=== PATIENT | female | born 1940 | race Caucasian/White ===

== ENCOUNTER 2019-12-30 11:53 | Emergency (ER) | payer MEDICARE, SELFPAY ==
[2019-12-30 11:55] VITALS: BP 187/103; PULSE 75; RESP 20; TEMP 36.9; O2SAT 97
--- NOTE | 2019-12-30 12:42 | ED.RECABL ---
HPI - Recheck/Abnormal Lab/Rx General Chief Complaint: Recheck/Abnormal Lab/Rx Stated Complaint: Elevated BP Time Seen by Provider: 12/30/19 12:08 Source: patient Mode of arrival: ambulatory Limitations: no limitations History of Present Illness HPI narrative: Patient is a 79-year-old female who presents to the emergency department with report of elevated blood pressure. Patient was at orthodox standing when she had onset of dizzy sensation that she describes as a near syncopal feeling. Patient denies any sensation of spinning. She states she felt as though her vision was going dark . She denies any other visual symptoms. She denies any slurred speech, focal neurologic deficits, chest pain, shortness of breath, or headache. Patient sat down and another member of the amish took her blood pressure and noted that it was elevated. They proceeded to take her blood pressure 2 additional times and contacted a family member to come pick her up. Patient went home and took her blood pressure yet again and it was 201/115. Patient and [id number] then proceeded to the emergency department. Patient is currently asymptomatic here in the emergency department. Repeat blood pressures have been 150s over 90s to 100s. Patient is currently on losartan 50 mg daily and metoprolol 25 mg daily. Patient denies any recent changes in her health and states she has been monitoring her blood pressure at home daily and her numbers have looked very good. complaint: other (high blood pressure) Related Data Home Medications Medication Instructions Recorded Confirmed aspirin 81 mg tablet,delayed 81 mg PO DAILY 10/01/19 12/21/19 release ergocalciferol (vitamin D2) 1,250 50,000 unit PO WEEKLY 10/01/19 12/21/19 mcg (50,000 unit) capsule omega 3,6,9 combination no.7 92 mg mg PO 10/01/19 12/21/19 (43 mg-22 [id number]) chew tablet vit C 50 mg-E 15 unit-zinc cit 4.5 2 tablet PO DAILY 10/01/19 12/21/19 mg-lutein 2.5 mg-zeaxan chew tablet Allergies Allergy/AdvReac Type Severity Reaction Status Date / Time codeine Allergy Unknown Vomiting Verified 10/01/19 10:09 Sulfa (Sulfonamide Allergy Unknown Unknown Verified 10/01/19 10:09 Antibiotics) Review of Systems Review of Systems: All systems reviewed & are unremarkable except as noted in HPI and below Eyes: Eyes: Denies change in vision Cardiovascular: Cardiovascular: Denies chest pain Respiratory: Respiratory: Denies dyspnea Neurologic: Denies Abnormal speech present, Denies abnormal gait, Denies vertigo, Reports dizziness, Denies syncope, Denies headache(s), Denies focal weakness, Denies memory loss, Denies numbness, Denies Sensory deficit (Neuro) and Denies disequilibrium PMFSH Past Medical History Medical History Allergies Cataract Left eye 12/2017 CKD (chronic kidney disease) Crohn disease Fracture of vertebra Hyperlipidemia Hypertension Osteopenia Post-menopausal TIA (transient ischemic attack) Vertigo Surgical History Surgical History H/O: hysterectomy History of appendectomy Social History Social History Smoking status: Former smoker Tobacco type: cigarettes Alcohol intake: never Substance use: never Exam Const: General: cooperative, no acute distress and alert Nutritional Appearance: well nourished Orientation/consciousness: patient oriented x3 Limitations: no limitations HENMT: Mouth: Yes lip normal and Yes moist mucous membranes Eyes: Conjunctivae: conjunctivae normal Pupils: Equal, round and reactive pupils present EOM: EOMs intact bilaterally Resp: Effort & Inspection: normal respiratory effort Auscultation: clear to auscultation bilaterally Cardio: Rate: regular rate Rhythm: regular rhythm GI: GI Palp: Yes Soft to palpation and No Tenderness to palpation pr
[2019-12-30 13:06] VITALS: RESP 18
[2019-12-30 13:10] VITALS: BP 166/99; PULSE 82; RESP 18; O2SAT 94
== END 2019-12-30 13:16 | disposition home or self-care (01) ==
PROVIDERS: Emergency Provider Emergency Medicine; PCP Internal Medicine
DX: I12.9 Hypertensive chronic kidney disease with stage 1 through stage 4 chronic kidney disease, or unspecified chronic kidney disease (principal); N18.9 Chronic kidney disease, unspecified; Z86.73 Personal history of transient ischemic attack (TIA), and cerebral infarction without residual deficits; K50.90 Crohn's disease, unspecified, without complications; E78.5 Hyperlipidemia, unspecified; M85.80 Other specified disorders of bone density and structure, unspecified site; Z87.891 Personal history of nicotine dependence; Z79.82 Long term (current) use of aspirin
CPT/HCPCS: 99281

== ENCOUNTER 2020-10-09 10:49 | Outpatient (CLI) | payer MEDICARE, SELFPAY ==
--- NOTE | ~2020-10-09 | CT_ITS ---
EXAMINATION:CT chest wo con DATE: 10/09/2020 11:10 INDICATION: Lung nodule. TECHNIQUE: Computed tomography (CT) of the chest was performed without intravenous contrast. Automate d exposure control and iterative reconstruction technique were employed. The dose-length product (DLP ) was 154.12 mGy-cm. COMPARISON: Chest CT 12/01/2019 FINDINGS: There is mild scarring at the lung apices. There is a 5 mm nodule at the minor fissure. The re is a 7 mm nodule in right lower lobe at the major fissure. There are peripheral reticular opacitie s and mild groundglass opacities in the inferior lungs. There is mild bronchiectasis in the inferior lungs. No pleural effusion. The heart size is normal. There are coronary artery calcifications. No pe ricardial effusion. There is a large sliding hiatal hernia. There is a 1 mm stone in right kidney. Th ere are multiple chronic vertebral body fractures in the spine. There is moderate thoracic spondylosi s. IMPRESSION: 1. Stable pulmonary nodules, likely benign. 2. Mild chronic lung disease. 3. Large sliding hiatal hernia. Reviewed, dictated and finalized at location A. UNTING ADMINISTRATOR
== END 2020-10-09 10:50 | disposition home or self-care (01) ==
PROVIDERS: PCP Internal Medicine; Visit Provider Nurse Practitioner
DX: R91.8 Other nonspecific abnormal finding of lung field (principal); K44.9 Diaphragmatic hernia without obstruction or gangrene; J47.9 Bronchiectasis, uncomplicated; M47.814 Spondylosis without myelopathy or radiculopathy, thoracic region; J98.4 Other disorders of lung
CPT/HCPCS: 71250

== ENCOUNTER 2021-04-07 12:26 | Outpatient (CLI) | payer MEDICARE, SELFPAY ==
--- NOTE | 2021-04-07 12:36 | ECHO_ITS ---
Patient Info Name: Hayley Jorge Age: 80 years : 1940 Gender: Female Ht: 62 in Wt: 209 lbs BSA: 2.08 m2 HR: 64 bpm BP: 145 / 105 mmHg Technical Quality: Fair Exam Date: 04/07/2021 12:46 PM Exam Location: [facility] Patient Status: Outpatient Admit Date: 04/07/2021 Staff Ordering Physician: Cristiana Welch NP Internal Audit Manager: Katherin Osman RDCS Attending Provider: Cristiana Welch NP Referring Physician: Yuri BELCHER; Exam Type: CA echo doppler color flow Study Info Indications R60.9 - Edema, unspecified Complete two-dimensional, color flow and Doppler transthoracic echocardiogram is performed. Summary 1. Complete two-dimensional, color flow and Doppler transthoracic echocardiogram is performed. 2. Left ventricular chamber dimension is normal. 3. Left ventricular systolic function is normal, estimated at 60-65%. 4. The left ventricular diastolic function is grade I diastolic dysfunction. 5. E/e' 13 is mildly elevated. 6. There is mild aortic valve sclerosis. 7. There is trace aortic valve regurgitation. 8. No pulmonary hypertension, estimated pulmonary arterial systolic pressure is 30 mmHg. 9. There is mild pulmonic regurgitation. Left Ventricle E/e' 13 is mildly elevated. Left ventricular chamber dimension is normal. Left ventricular systolic function is normal, estimated at 60-65%. The left ventricular diastolic function is grade I diastolic dysfunction. Right Ventricle Right ventricular systolic function is normal and with normal TAPSE 2.5 cm. Right ventricular chamber dimension is normal. Left Atria Left atrial chamber dimension is normal. Right Atria Right atrial chamber dimension is normal. Aortic Valve The aortic valve is trileaflet. There is mild aortic valve sclerosis. There is no aortic valve stenosis. There is trace aortic valve regurgitation. Pulmonic Valve There is mild pulmonic regurgitation. Mitral Valve There is no mitral valve stenosis. There is no mitral valve regurgitation. Tricuspid Valve There is no tricuspid valve regurgitation. No pulmonary hypertension, estimated pulmonary arterial systolic pressure is 30 mmHg. Pericardium/Pleural There is no pericardial effusion. Inferior Vena Cava Normal inferior vena cava with >50% collapse upon inspiration consistent with normal right atrial pressure, 5 mmHg. Aorta The aortic root size at the sinus of Valsalva is normal. Left Ventricular Outflow Tract Name Value Normal LVOT 2D LVOT Diameter 2.0 cm LVOT Doppler LVOT Peak Gradient 4 mmHg LVOT Mean Gradient 2 mmHg LVOT VTI 20 cm LVOT VTI/AV VTI Ratio 0.8 LVOT Stroke Volume 59 ml LVOT CO 4.0 l/min LVOT CI 1.9 l/min/m2 Pulmonic Valve Name Value Normal
== END 2021-04-07 12:27 | disposition home or self-care (01) ==
LOC: ANHCARD 12:28
PROVIDERS: PCP Internal Medicine; Visit Provider Nurse Practitioner
DX: R60.9 Edema, unspecified (principal); I70.0 Atherosclerosis of aorta; I37.1 Nonrheumatic pulmonary valve insufficiency
CPT/HCPCS: 93306

== ENCOUNTER 2021-06-09 08:20 | Outpatient (CLI) | payer MEDICARE, SELFPAY ==
--- NOTE | ~2021-06-09 | MR_ITS ---
EXAMINATION: MR knee LT wo con DATE: 06/09/2021 09:47 INDICATION: Left knee pain. TECHNIQUE: Magnetic resonance imaging (MRI) of the left knee was performed without intravenous contra st. Sequences included axial PD-weighted FS FSE, coronal PD-weighted FSE and PD-weighted FS FSE, sagi ttal PD-weighted FSE, and sagittal T2-weighted FS FSE. COMPARISON: None. FINDINGS: Medial compartment: There is a radial tear of posterior horn of medial meniscus. There is extensive partial thickness car tilage loss of tibial condyle and femoral condyle. There is full-thickness cartilage loss of femoral condyle involving the central articular surface. Marginal osteophytes are noted. Lateral compartment: There is a complex tear of body and posterior horn of lateral meniscus. There is extensive partial th ickness cartilage loss of femoral condyle and tibial condyle. There is full-thickness cartilage loss of femoral condyle and tibial condyle involving the posterior articular surfaces. Osteophytes are not ed. Patellofemoral compartment: There is full-thickness cartilage loss of patellar medial facet, median ridge, and lateral facet with moderate subchondral edema-like marrow signal intensity. There is extensive partial thickness cartil age loss of trochlea. Osteophytes are noted. Ligaments and tendons: The anterior and posterior cruciate ligaments are normal. Medial collateral ligament is intact. There are changes of prior sprain of fibular collateral ligament characterized by thickening and increased signal intensity proximally. There is mild patellar tendinopathy. Fluid: There is a small knee joint effusion. There is a moderate-sized ruptured Almonte's cyst. There is mild prepatellar and superficial infrapatellar bursitis. There is widespread subcutaneous edema about the knee. IMPRESSION: 1. Severe tricompartmental chondrosis. 2. Tears of medial and lateral menisci. 3. Small knee joint effusion. 4. Moderate-sized ruptured Almonte's cyst. Reviewed, dictated and finalized at location A.
== END 2021-06-09 08:21 | disposition home or self-care (01) ==
PROVIDERS: PCP Internal Medicine; Visit Provider Nurse Practitioner
DX: M25.462 Effusion, left knee (principal); M71.22 Synovial cyst of popliteal space [Baker], left knee
CPT/HCPCS: 73721

== ENCOUNTER 2021-10-15 12:43 | Outpatient (CLI) | payer MEDICARE, SELFPAY ==
--- NOTE | 2021-10-15 | ECG_ITS ---
Measurements Intervals [place] Rate: 71 P: 8 [place]: 187 QRS: -14 QRSD: 78 T: 2 QT: 354 QTc: 385 Interpretive Statements SINUS RHYTHM DELAYED PRECORDIAL R/S TRANSITION VOLTAGE CRITERIA FOR LVH BORDERLINE T WAVE ABNORMALITY- INFERIOR LEADS BASELINE ARTIFACT- AVL, AVF BORDERLINE ECG Electronically Signed On 10-15-2021 16:51:55 LEVEL DESIGNER by Gilberto De Los Santos D.O.
[2021-10-15 13:33] LABS: Anion Gap 9 mmol/L (8-16); Blood Urea Nitrogen 23 mg/dL (7-17); Carbon Dioxide 23 mmol/L (22-30); Chloride 103 mmol/L (98-107); Estimated Glomerular Filt Rate 40; Glucose 153 mg/dL (65-110); Potassium 4.4 mmol/L (3.4-5.0); Sodium 135 mmol/L (137-145)
== END 2021-10-15 12:44 | disposition home or self-care (01) ==
PROVIDERS: PCP Internal Medicine
DX: Z01.810 Encounter for preprocedural cardiovascular examination (principal)
CPT/HCPCS: 36415; 80048; 93005

== ENCOUNTER 2022-01-09 10:06 | Emergency (ER) | payer MEDICARE, SELFPAY ==
--- NOTE | 2022-01-09 10:16 | ED.SKABFB ---
HPI - Skin/Abscess/Foreign Bdy General Chief complaint: Allergic Reaction Stated complaint: Rash and swollen face Time Seen by Provider: 01/09/22 10:16 Source: patient, RN notes reviewed and old records reviewed Mode of arrival: ambulatory Limitations: no limitations History of Present Illness HPI narrative: 81-year-old female presents to the [facility] with complaints of a rash to the upper chest and face since yesterday. Denies any new foods, creams, lotions, detergents or medications. Patient denies any respiratory symptoms, chest pain, abdominal pain. No fevers. No lip, tongue, throat swelling. Patient reports that she picked a vest up from the crime scene technician, symptoms started 2 days ago symptoms started shortly thereafter. Had been applying hydrocortisone but states it makes the rash worse. MD complaint: rash (face, upper chest) Onset (ago): day(s) (2) Location: face Severity: mild Related Data Home Medications Medication Instructions Recorded Confirmed aspirin 81 mg tablet,delayed 81 mg PO DAILY 10/01/19 01/09/22 release ergocalciferol (vitamin D2) 1,250 50,000 unit PO WEEKLY 10/01/19 01/09/22 mcg (50,000 unit) capsule omega 3,6,9 combination no.7 92 mg 1 mg PO DIRECTED 10/01/19 01/09/22 (43 mg-22 [id number]) chew tablet vit C 50 mg-E 15 unit-zinc cit 4.5 1 tablet PO DAILY tablet 10/06/20 01/09/22 mg-lutein 2.5 mg-zeaxan chew tablet Allergies Allergy/AdvReac Type Severity Reaction Status Date / Time codeine Allergy Unknown Vomiting Verified 01/09/22 10:11 Sulfa (Sulfonamide Allergy Unknown Unknown Verified 01/09/22 10:11 Antibiotics) Review of Systems Review of Systems: All systems reviewed & are unremarkable except as noted in HPI and below Constitutional: Constitutional: Reports no additional constitutional complaints, Denies chills, Denies fever(s), Denies headache(s) and Denies weakness Eyes: Eyes: Reports no additional eye complaints and Denies change in vision ENT: Reports system reviewed and no additional complaints, except as documented, Denies dysphagia, Denies dizziness, Denies headache(s), Denies nasal congestion and Denies sore throat Cardiovascular: Cardiovascular: Reports no additional cardiovascular complaints, Denies chest pain, Denies syncope and Denies dyspnea Respiratory: Respiratory: Reports no additional respiratory complaints, Denies chest congestion, Denies cough, Denies dyspnea and Denies wheezing Gastrointestinal: Gastrointestinal: Denies dysphagia Musculoskeletal: Musculoskeletal: Reports no additional musculoskeletal complaints and Denies numbness Integumentary/Breasts: Skin/Breast: Reports as per HPI and Reports rash (face and upper chest) Neurologic: Reports system reviewed and no additional complaints, except as documented Psychiatric: Psychiatric: Reports no additional psychiatric complaints Allergic/Immunologic: Allergic/Immunologic: Reports as per HPI, Denies lip swelling, Denies throat swelling, Denies tongue swelling and Denies wheezing PMFSH Past Medical History Medical History Allergies Cataract Left eye 12/2017 CKD (chronic kidney disease) Crohn disease Fracture of vertebra Hyperlipidemia Hypertension Lateral meniscal tear Medial meniscus tear Osteopenia Post-menopausal TIA (transient ischemic attack) Vertigo Surgical History Surgical History H/O: hysterectomy History of appendectomy Family History Family History Father Family history of malignant neoplasm, Onset Age: 87 Social History Social History Social History: caffeine-coffee daily Smoking status: Never smoker Tobacco type: cigarettes Alcohol intake: never Substance use: never Comments At the time of my signature, I reviewed and agree with the n
[2022-01-09 10:17] VITALS: BP 144/89; PULSE 71; RESP 18; TEMP 36.4; O2SAT 96
== END 2022-01-09 10:38 | disposition home or self-care (01) ==
PROVIDERS: Emergency Provider Nurse Practitioner; PCP Internal Medicine
DX: L24.0 Irritant contact dermatitis due to detergents (principal); H26.9 Unspecified cataract; E78.5 Hyperlipidemia, unspecified; M85.80 Other specified disorders of bone density and structure, unspecified site; Z86.73 Personal history of transient ischemic attack (TIA), and cerebral infarction without residual deficits; I12.9 Hypertensive chronic kidney disease with stage 1 through stage 4 chronic kidney disease, or unspecified chronic kidney disease; N18.9 Chronic kidney disease, unspecified; K50.90 Crohn's disease, unspecified, without complications
CPT/HCPCS: 99213; G0463

== ENCOUNTER 2022-03-04 17:48 | Emergency (ER) | payer MEDICARE, SELFPAY ==
--- NOTE | ~2022-03-04 | XR_ITS ---
XR ankle RT min 3V DATE: 03/04/2022 18:12 INDICATION: Twisting injury today. Lateral ankle pain. TECHNIQUE: 4 views COMPARISON: None FINDINGS: Osteopenia. Plantar and posterior calcaneal enthesopathy, distal Achilles tendon mild calcification. No fracture or dislocation of the ankle or disruption of the ankle mortise is detected. IMPRESSION: No recent fracture or dislocation Calcaneal enthesopathy Reviewed, dictated and finalized at location A.
[2022-03-04 17:57] VITALS: BP 151/107; PULSE 75; RESP 16; TEMP 36.8; O2SAT 99
[2022-03-04 18:00] VITALS: BP 151/107; PULSE 75; RESP 16; TEMP 36.8; O2SAT 99
--- NOTE | 2022-03-04 18:23 | ED.LOWEXIN ---
HPI - Extremity Injury (Lower) General Chief Complaint: Extremity Injury, Lower Stated Complaint: right ankle pain Time Seen by Provider: 03/04/22 18:23 Source: patient Mode of arrival: ambulatory Limitations: no limitations History of Present Illness HPI Narrative: 81-year-old female presents with pain and swelling to right ankle. States that she was working in her garden and lost her balance while walking over a rock bed, caused right ankle to twist inward. Reports she was walking next to a table and was able to grab onto it to catch her balance. Did not fall completely to the ground. Did take ibuprofen prior to arrival. Ambulatory with slight limp. Range of motion and distal neurovascularly intact. Systems reviewed and negative except as noted. Related Data Home Medications Medication Instructions Recorded Confirmed aspirin 81 mg tablet,delayed 81 mg PO DAILY 10/01/19 03/04/22 release ergocalciferol (vitamin D2) 1,250 50,000 unit PO WEEKLY 10/01/19 03/04/22 mcg (50,000 unit) capsule omega 3,6,9 combination no.7 92 mg 1 mg PO DIRECTED 10/01/19 03/04/22 (43 mg-22 [id number]) chew tablet vit C 50 mg-E 15 unit-zinc cit 4.5 1 tablet PO DAILY tablet 10/06/20 03/04/22 mg-lutein 2.5 mg-zeaxan chew tablet Allergies Allergy/AdvReac Type Severity Reaction Status Date / Time codeine Allergy Unknown Vomiting Verified 03/04/22 17:58 Sulfa (Sulfonamide Allergy Unknown Unknown Verified 03/04/22 17:58 Antibiotics) Review of Systems Review of Systems: CONSTITUTIONAL: Denies fever, chills, or sweats. EYES: Denies visual changes, redness, or discharge. ENT: Denies rhinorrhea, congestion, sore throat, or otalgia. CARDIOVASCULAR: Denies chest pain, palpitations, or edema. RESPIRATORY: Denies cough or dyspnea. GASTROINTESTINAL: Denies abdominal pain, nausea, vomiting, or diarrhea. GENITOURINARY: Denies dysuria or hematuria. SKIN: Denies rash or itching. MUSCULOSKELETAL: Denies back pain, joint pain, or myalgia. Reports pain and swelling to right ankle. NEUROLOGIC: Denies headache, numbness, or weakness. PSYCHIATRIC: Denies anxiety or depression. All other systems reviewed are negative, except as documented in HPI. [facility] Past Medical History Medical History Allergies Cataract Left eye 12/2017 CKD (chronic kidney disease) Crohn disease Fracture of vertebra Hyperlipidemia Hypertension Lateral meniscal tear Medial meniscus tear Osteopenia Post-menopausal Tear meniscus knee TIA (transient ischemic attack) Vertigo Surgical History Surgical History H/O lateral meniscus repair of left knee H/O: hysterectomy History of appendectomy Family History Family History Father Family history of malignant neoplasm, Onset Age: 87 Social History Social History Social History: caffeine-coffee daily Smoking status: Never smoker Tobacco type: cigarettes Alcohol intake: never Substance use: never Comments At time of signature, agree with nursing past medical, surgical, social and family history. There is no relevant family history pertinent to the presenting complaint. Exam Narrative: GENERAL: This is a well-nourished, well-developed patient, in no apparent distress. HEAD: normocephalic, atraumatic. EYES: PERRL. Sclera clear/white. Vision is grossly intact. EARS: External ears normal NOSE: External nose normal NECK: Neck supple, non-tender without lymphadenopathy, masses or thyromegaly. CARDIOVASCULAR: Regular rate and rhythm without murmurs, gallops, or rubs. RESPIRATORY: Clear to auscultation. Breath sounds equal bilaterally. No wheezes, rales, or rhonchi. SKIN: warm, Dry, intact with no suspicious lesions or rash, good texture and turgor. NEURO: awake, alert, and oriente
== END 2022-03-04 18:45 | disposition home or self-care (01) ==
PROVIDERS: Emergency Provider Nurse Practitioner Family; PCP Internal Medicine
DX: S93.401A Sprain of unspecified ligament of right ankle, initial encounter (principal); X50.9XXA Other and unspecified overexertion or strenuous movements or postures, initial encounter; Y93.H2 Activity, gardening and landscaping; I12.9 Hypertensive chronic kidney disease with stage 1 through stage 4 chronic kidney disease, or unspecified chronic kidney disease; N18.9 Chronic kidney disease, unspecified; K50.90 Crohn's disease, unspecified, without complications; E78.5 Hyperlipidemia, unspecified; M85.80 Other specified disorders of bone density and structure, unspecified site; Z86.73 Personal history of transient ischemic attack (TIA), and cerebral infarction without residual deficits
CPT/HCPCS: 73610; 99213; G0463

== ENCOUNTER 2022-03-12 07:16 | Emergency (ER) | payer MEDICARE, SELFPAY ==
[2022-03-12] VITALS (30 sets, daily range): BP systolic 110–163; BP diastolic 81–111; PULSE 59–82; RESP 11–23; TEMP 36.9; O2SAT 92–99
--- NOTE | ~2022-03-12 | XR_ITS ---
EXAMINATION: XR chest 2V DATE: 03/12/2022 07:35 INDICATION: Chest pain TECHNIQUE: PA and lateral views of the chest are obtained. COMPARISON: 12/01/2019 FINDINGS: The lungs are free of acute opacities. There is no pleural effusion or pneumothorax. The he art size is normal. There is a large hiatal hernia. Multiple chronic vertebral body fractures are aga in noted without significant change. IMPRESSION: 1. No acute cardiopulmonary abnormality. Reviewed, dictated and finalized at location A.
--- NOTE | 2022-03-12 07:19 | ECG_ITS ---
Measurements Intervals [place] Rate: 68 P: -6 [place]: 196 QRS: -15 QRSD: 89 T: 5 QT: 380 QTc: 406 Interpretive Statements SINUS RHYTHM VOLTAGE CRITERIA FOR LVH BORDERLINE T WAVE ABNORMALITY- INFERIOR LEADS BASELINE ARTIFACT- I, II BORDERLINE ECG Electronically Signed On 03-12-2022 8:13:48 CDT by Gilberto De Los Santos D.O.
[2022-03-12] MEDS: ASPIRIN 81 MG CHEWABLE TABLET 324 MG PO (07:29)
[2022-03-12 07:39] LABS: Basophils Percent Auto 0.8 % (0.2-1.2); Eosinophils Absolute Auto 0.1 K/mm3 (0-0.3); Eosinophils Percent Auto 2.6 % (0-4.4); Hemoglobin 13.6 g/dL (12.0-15.0); Immature Granulocyte Absolute 0.01 K/mm3 (0.00-0.031); Immature Granulocyte Percent A 0.2 % (0-0.5); Lymphocytes Absolute Auto 1.68 K/mm3 (0.9-3.2); Lymphocytes Percent Auto 33.2 % (18.3-44.2); Mean Corpuscular HGB Conc 33.2 g/dl (32-36); Mean Corpuscular Hemoglobin 30.6 pg (26-34); Mean Corpuscular Volume 92.3 fl (80-100); Mean Platelet Volume 10.3 fl (7.4-10.4); Monocytes Absolute Auto 0.8 K/mm3 (0.1-0.6); Monocytes Percent Auto 14.8 % (2.6-8.5); Neutrophils Absolute Auto 2.5 K/mm3 (1.3-6.7); Neutrophils Percent Auto 48.4 % (45.5-73.1); Platelet Count Result 252 k/mm3 (150-375); Red Blood Count 4.44 M/mm3 (4.2-5.4); Red Cell Distribution Width 13.4 % (11.5-14.5); White Blood Count 5.1 K/mm3 (4.5-10.0)
[2022-03-12 07:49] LABS: INR 1.1; Partial Thromboplastin Time 27.5 SECONDS (22.3-36.8); Prothrombin Time 13.4 Seconds (11.1-14.7)
[2022-03-12 08:00] LABS: Alanine Aminotransferase 21 U/L (4-35); Albumin Level 3.9 g/dL (3.5-5.1); Alkaline Phosphatase 109 U/L (38-126); Anion Gap 4 mmol/L (8-16); Aspartate Amino Transferase 23 U/L (14-36); Bilirubin,Total 0.4 mg/dL (0.2-1.3); Blood Urea Nitrogen 14 mg/dL (7-17); Calcium 9.1 mg/dL (8.4-10.2); Carbon Dioxide 23 mmol/L (22-30); Chloride 110 mmol/L (98-107); Estimated CRCL calculation 38 ml/min; Estimated Glomerular Filt Rate 48; Glucose 113 mg/dL (65-110); Lipase 94 U/L (23-300); Potassium 4.2 mmol/L (3.4-5.0); Sodium 137 mmol/L (137-145)
[2022-03-12 08:10] LABS: Troponin I < 0.012 ng/mL (0.000-0.034)
--- NOTE | 2022-03-12 08:55 | ED.CHESTPAIN ---
HPI - Chest Pain General Chief Complaint: Chest Pain Stated Complaint: CP Time Seen by Provider: 03/12/22 07:19 Source: patient Mode of arrival: ambulatory Limitations: no limitations History of Present Illness HPI narrative: 81-year-old female presents to the emergency department for evaluation of chest pain back pain that started approximately 1 hour prior to arrival. Patient states she does have a history of GERD and this felt similar. Patient states that typically her GERD does improve with drinking water and this pain did not resolve with drinking water. Patient denies any current chest pain but states she is still having some back pain. Patient denies any prior history of coronary disease. Patient does have history of hypertension. Patient denies any history of high cholesterol or diabetes. Patient had a stress test in 2006. Related Data Home Medications Medication Instructions Recorded Confirmed aspirin 81 mg tablet,delayed 81 mg PO DAILY 10/01/19 03/04/22 release ergocalciferol (vitamin D2) 1,250 50,000 unit PO WEEKLY 10/01/19 03/04/22 mcg (50,000 unit) capsule omega 3,6,9 combination no.7 92 mg 1 mg PO DIRECTED 10/01/19 03/04/22 (43 mg-22 [id number]) chew tablet vit C 50 mg-E 15 unit-zinc cit 4.5 1 tablet PO DAILY tablet 10/06/20 03/04/22 mg-lutein 2.5 mg-zeaxan chew tablet Allergies Allergy/AdvReac Type Severity Reaction Status Date / Time codeine Allergy Unknown Vomiting Verified 03/12/22 07:25 Sulfa (Sulfonamide Allergy Unknown Unknown Verified 03/12/22 07:25 Antibiotics) Review of Systems Review of Systems: CONSTITUTIONAL: Denies fever, chills, or sweats. EYES: Denies visual changes, redness, or discharge. ENT: Denies rhinorrhea, congestion, sore throat, or otalgia. CARDIOVASCULAR: See HPI RESPIRATORY: Denies cough or dyspnea. GASTROINTESTINAL: Denies abdominal pain, nausea, vomiting, or diarrhea. GENITOURINARY: Denies dysuria or hematuria. SKIN: Denies rash or itching. MUSCULOSKELETAL: See HPI NEUROLOGIC: Denies headache, numbness, or weakness. [facility] Past Medical History Medical History Allergies Cataract Left eye 12/2017 CKD (chronic kidney disease) Crohn disease Fracture of vertebra Hyperlipidemia Hypertension Lateral meniscal tear Medial meniscus tear Osteopenia Post-menopausal Tear meniscus knee TIA (transient ischemic attack) Vertigo Surgical History Surgical History H/O lateral meniscus repair of left knee H/O: hysterectomy History of appendectomy Family History Family History Father Family history of malignant neoplasm, Onset Age: 87 Social History Social History Social History: caffeine-coffee daily Smoking status: Never smoker Tobacco type: cigarettes Alcohol intake: never Substance use: never Exam Narrative: APPEARANCE: Well appearing, no pain, no distress, well-nourished. HEAD: normocephalic, atraumatic. EYES: PERRLA/EOMI, conjunctivae clear. NOSE: Normal no drainage THROAT: Pharynx clear, no exudate. NECK: Supple. No adenopathy, no masses. RESPIRATORY: Airway patent, respirations nonlabored. Clear to auscultation bilaterally, no rales, rhonchi, wheezing. CARDIOVASCULAR: Regular rate and rhythm without murmurs rubs or gallops. ABDOMINAL: Soft, nontender, nondistended, normal bowel sounds MUSCULOSKELETAL: Moves all extremities. Strength/ROM intact, No edema, No calf tenderness. NEURO: Alert. Cranial nerves II through XII intact. Grossly intact SKIN: Warm, dry. Normal Color Course Course Emergency Course: Patient's pain did improve during her stay in the emergency room. Patient denied any chest pain prior to discharge. Patient had negative serial troponins. Patient did feel improvement with the GI cocktail.
[2022-03-12] MEDS: BELLADONNA ALK/PHENOB ELIX 10 ML, MAG HYDROX/ALUMINUM HYD/SIMETH 30 ML, LIDOCAINE HCL 2... PO (09:16)
[2022-03-12 10:20] LABS: Troponin I < 0.012 ng/mL (0.000-0.034)
[2022-03-12] MEDS: PANTOPRAZOLE SOD SESQUIHYDRATE 20 MG TAB PO (11:12)
== END 2022-03-12 11:17 | disposition home or self-care (01) ==
PROVIDERS: Emergency Provider Emergency Medicine; PCP Internal Medicine
DX: R07.9 Chest pain, unspecified (principal); I12.9 Hypertensive chronic kidney disease with stage 1 through stage 4 chronic kidney disease, or unspecified chronic kidney disease; N18.9 Chronic kidney disease, unspecified; K50.90 Crohn's disease, unspecified, without complications; E78.5 Hyperlipidemia, unspecified; K21.9 Gastro-esophageal reflux disease without esophagitis; Z79.82 Long term (current) use of aspirin; M85.80 Other specified disorders of bone density and structure, unspecified site; Z86.73 Personal history of transient ischemic attack (TIA), and cerebral infarction without residual deficits; R94.31 Abnormal electrocardiogram [ECG] [EKG]
CPT/HCPCS: 36415; 71046; 80053; 83690; 84484; 85025; 85610; 85730; 93005; 99284; A9270

== ENCOUNTER 2022-08-04 11:01 | Outpatient (CLI) | payer MEDICARE, SELFPAY ==
--- NOTE | ~2022-08-04 | US_ITS ---
US thyroid INDICATION: Thyroid fullness TECHNIQUE: Real-time sonographic images of the thyroid gland were obtained. COMPARISON: No prior studies for comparison. FINDINGS: The right thyroid lobe measures 3.3 x 2.2 x 1.4 cm. The left thyroid lobe measures 2.9 x 1 .6 x 1 cm. There is normal echotexture and echogenicity throughout the thyroid gland. No discrete nod ules identified. Normal vascular flow is present. IMPRESSION: 1. Normal thyroid without discrete nodule or abnormal vascularity. Reviewed, dictated and finalized at location B.
== END 2022-08-04 11:02 | disposition home or self-care (01) ==
LOC: ANHIMG 11:03
PROVIDERS: PCP Internal Medicine; Visit Provider Nurse Practitioner
DX: R22.1 Localized swelling, mass and lump, neck (principal)
CPT/HCPCS: 76536

== ENCOUNTER 2023-02-02 15:40 | Outpatient (CLI) | payer MEDICARE, SELFPAY ==
--- NOTE | ~2023-02-02 | CT_ITS ---
EXAMINATION: CT diagnostic chest wo con DATE: 02/02/2023 15:56 INDICATION: Lung nodule follow-up TECHNIQUE: Computed tomography (CT) of the chest was performed without intravenous contrast. Automate d exposure control and iterative reconstruction technique were employed. Exam dose: 177.01 mGy-cm to evan exam DLP. COMPARISON: 03/12/2022 PA and lateral chest 10/09/2020 CT chest FINDINGS: Large sliding hiatal hernia containing almost the entire stomach. Normal heart size. Mild coronary artery calcification. There is atherosclerotic calcification but nor mal caliber of the thoracic aorta. No hilar or mediastinal mass lesion or lymphadenopathy. Stable probable fissural node of the minor fissure, benign in appearance, unchanged since . Stable peripheral 6 mm right lower lobe pulmonary nodule. Stable mild bilateral apical scarring. Mild discoid atelectasis or scarring of the lower lobes. Mild peripheral interstitial septal soft tis owen thickening thickening of the lungs, possibly due to mild usual interstitial pneumonia interstitia l fibrosis. Normal morphology of the adrenal glands. Osteoarthritis at the glenohumeral joints. There is thoracic kyphosis with loss of height and anterior wedging of multiple thoracic vertebral leopoldo dies, most prominent at T8, also involving to a lesser extent T7, T6, T3, T2. Degenerative spurring o f the thoracic and lumbar spine. 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 Reviewed, dictated and finalized at location B.
== END 2023-02-02 15:41 | disposition home or self-care (01) ==
PROVIDERS: PCP Internal Medicine; Visit Provider Nurse Practitioner
DX: R91.1 Solitary pulmonary nodule (principal); K44.9 Diaphragmatic hernia without obstruction or gangrene; M48.54XA Collapsed vertebra, not elsewhere classified, thoracic region, initial encounter for fracture
CPT/HCPCS: 71250

== ENCOUNTER 2023-04-08 13:43 | Emergency (ER) | payer MEDICARE, SELFPAY ==
--- NOTE | ~2023-04-08 | XR_ITS ---
EXAMINATION: XR foot RT min 3V DATE: 04/08/2023 14:17 INDICATION: Right foot pain. TECHNIQUE: 4 views of right foot were obtained. COMPARISON: None. FINDINGS: Bone alignment is normal. No fracture. There is severe osteoarthritis of first and second m etatarsophalangeal joints and mild osteoarthritis of many of the interphalangeal joints. There is mod erate osteoarthritis of third proximal interphalangeal joint. There are deformities of the heads of t he second-fifth proximal phalanges, which may be secondary to prior surgery or old healed fractures. There are enthesophytes at the posterior and plantar aspects of calcaneal tuberosity. IMPRESSION: 1. Polyarticular osteoarthritis. Reviewed, dictated and finalized at location A.
[2023-04-08 13:53] VITALS: BP 131/68; PULSE 91; RESP 16; TEMP 36.9; O2SAT 98
--- NOTE | 2023-04-08 14:22 | ED.LOWEXIN ---
HPI - Extremity Injury (Lower) General Chief Complaint: Extremity Injury, Lower Stated Complaint: Right Foot Pain Time Seen by Provider: 04/08/23 14:46 Source: patient and RN notes reviewed Mode of arrival: ambulatory Limitations: no limitations History of Present Illness HPI Narrative: 82 year old female presents with concern for right foot pain. She reports her foot started hurting after she was working in the [employer] 2 days ago. Reports she did not have any direct injury or trauma. She reports swelling. She reports she has been using ice in [place] without relief. She denies fever, aches, chills, sweats. Denies history of gout MD complaint: foot injury Related Data Home Medications Medication Instructions Recorded Confirmed aspirin 81 mg tablet,delayed 81 mg PO DAILY 10/01/19 01/26/23 release (Adult Low Dose Aspirin) ergocalciferol (vitamin D2) 1,250 50,000 unit PO WEEKLY 10/01/19 01/26/23 mcg (50,000 unit) capsule omega 3,6,9 combination no.7 92 mg 1 mg PO DIRECTED 10/01/19 01/26/23 (43 mg-22 [id number]) chew tablet vit C 50 mg-E 15 unit-zinc cit 4.5 1 tablet PO DAILY 10/06/20 01/26/23 mg-lutein 2.5 mg-zeaxan chew tablet (hearo.fm [facility]) vitamin B complex (B 1 tablet PO DAILY 07/30/22 01/26/23 Complex-Vitamin B12 tablet) thiamine HCl (vitamin B1) 25 mg mg PO 01/26/23 01/26/23 tablet mag jh-lmvfzws-bthkqhqgh-e-bilber ml PO 04/08/23 300 mg-600 mg-100 mg/15 mL oral susp Allergies Allergy/AdvReac Type Severity Reaction Status Date / Time codeine Allergy Unknown Vomiting Verified 10/07/22 10:16 Sulfa (Sulfonamide AdvReac Unknown Vomiting Verified 04/08/23 14:02 Antibiotics) Review of Systems Review of Systems: CONSTITUTIONAL: Denies malaise, chills, sweats, or fever. SKIN: Denies rash or itching, open skin, laceration, abrasion, redness, warmth, swelling. MUSCULOSKELETAL: Reports right foot pain and swelling NEUROLOGIC: Denies numbness, weakness All systems reviewed & are unremarkable except as noted in HPI and below PMFSH Past Medical History Medical History (Reviewed 01/26/23 @ 07:37 by Anjana Mcdaniel [facility]) Allergies Cataract Left eye 12/2017 CKD (chronic kidney disease) Constipation Crohn disease Fracture of vertebra Fullness of neck Hyperlipidemia Hypertension Lateral meniscal tear Medial meniscus tear Osteopenia Post-menopausal Tear meniscus knee TIA (transient ischemic attack) Vertigo Surgical History Surgical History (Reviewed 01/26/23 @ 07:37 by Anjana Mcdaniel [facility]) H/O lateral meniscus repair of left knee H/O: hysterectomy History of appendectomy Family History Family History Father Family history of malignant neoplasm, Onset Age: 87 Social History Social History (Reviewed 01/26/23 @ 07:37 by Anjana Mcdaniel [facility]) Social History: caffeine-coffee daily, 1 cup Smoking status: Never smoker Tobacco type: cigarettes Alcohol intake: never Substance use: never Lack of Transportation: No Lack of Food: Never True Current Housing: I Have Housing Concerned About Future Housing: No Difficulty Paying Gas/Electric Bills: No Difficulty Paying for Meds: No Currently Unemployed: No Education: High School Diploma/GED Difficulty w/ Childcare or Family Care: No Comments At time of signature, agree with nursing past medical, surgical, social and family history. There is no relevant family history pertinent to the presenting complaint Exam Narrative: GENERAL: Well-appearing, well-nourished, and in no acute distress. HEAD: Normocephalic, atraumatic. EYES: PERRLA, conjunctivae clear NECK: Supple. CHEST: Speaks in full sentences. No respiratory distress. HEART: Regular rate and rhythm. Normal and equal peripheral pulses. EXTREMITIES: Right ankle, foot, digits have has normal strength and sensation, normal range of motion. Mild soft edema without ecchymosis.
== END 2023-04-08 14:50 | disposition home or self-care (01) ==
PROVIDERS: Emergency Provider Nurse Practitioner; PCP Internal Medicine
DX: M79.671 Pain in right foot (principal); I12.9 Hypertensive chronic kidney disease with stage 1 through stage 4 chronic kidney disease, or unspecified chronic kidney disease; N18.9 Chronic kidney disease, unspecified; K50.90 Crohn's disease, unspecified, without complications; E78.5 Hyperlipidemia, unspecified; M85.80 Other specified disorders of bone density and structure, unspecified site; Z86.73 Personal history of transient ischemic attack (TIA), and cerebral infarction without residual deficits; Z79.82 Long term (current) use of aspirin
CPT/HCPCS: 73630; 99213; G0463

== ENCOUNTER 2023-05-04 14:53 | Outpatient (CLI) | payer MEDICARE, SELFPAY ==
--- NOTE | ~2023-05-04 | US_ITS ---
EXAMINATION: US venous doppler LE RT DATE: 05/04/2023 15:53 INDICATION: Right lower limb swelling TECHNIQUE: Salazar scale images without and with compression and Doppler images of the right lower extre mity veins were obtained. COMPARISON: None FINDINGS: The right common femoral vein, profunda femoral vein, femoral vein, popliteal vein, peronea l trunk, posterior tibial veins, and greater saphenous vein are patent. IMPRESSION: 1. Patent right lower extremity veins. No evidence of deep venous thrombosis. Reviewed, dictated and finalized at location []
== END 2023-05-04 14:54 | disposition home or self-care (01) ==
PROVIDERS: PCP Internal Medicine; Visit Provider Internal Medicine Nephrology
DX: R60.0 Localized edema (principal); M79.89 Other specified soft tissue disorders; N18.32 Chronic kidney disease, stage 3b
CPT/HCPCS: 93971

== ENCOUNTER 2023-08-28 19:56 | Inpatient (IN) | payer MEDICARE, SELFPAY ==
[2023-08-28] VITALS (7 sets, daily range): BP systolic 139–169; BP diastolic 90–115; PULSE 82–97; RESP 16–22; TEMP 37.3–37.8; O2SAT 92–97
--- NOTE | ~2023-08-28 | XR_ITS ---
EXAMINATION: XR chest 1V portable Exam Date/Time: 08/28/2023 20:30 CDT HISTORY: FEVER NECK PAIN Comparison: 03/12/2022. RESULT: Lines, tubes, and devices: None. Lungs and pleura: Senescent changes and bibasilar scar/atelectasis, otherwise clear. Cardiomediastinal silhouette: Stable. Moderate hiatal hernia Other: No acute osseous or upper abdominal finding. IMPRESSION: No acute cardiopulmonary process. Reviewed, dictated and finalized at location K.
--- NOTE | ~2023-08-28 | CT_ITS ---
EXAMINATION: CT brain wo con DATE: 08/28/2023 21:56 INDICATION: neck pain, fever . TECHNIQUE: Computed tomography (CT) of the head was performed without intravenous contrast. The mA wa s adjusted according to patient size. Iterative reconstruction technique was employed. The dose-lengt h product was 605.33 mGy-cm. COMPARISON: 07/15/2016. FINDINGS: No acute intracranial hemorrhage or extra-axial fluid collection. No hydrocephalus, mass, or herniation. No acute ischemic infarct. Unremarkable dural venous sinus attenuation. No acute osseous abnormality. The aerated spaces are clear. Moderate atrophy and chronic white matter change. Atherosclerotic intracranial calcification. Old lef t lacunar infarction. Bilateral lens replacements. IMPRESSION: No acute intracranial process. Reviewed, dictated and finalized at location K.
--- NOTE | ~2023-08-28 | XR_ITS ---
EXAMINATION: XR lumbar puncture diagnostic DATE: 08/29/2023 13:11 INDICATION: Neck pain and fever TECHNIQUE: The procedure including the risks and benefits was discussed with the patient. Risks discu ssed included spinal headache, cerebrospinal fluid leak, bleeding, and infection. The patient underst ood the risks and agreed to proceed. A timeout was performed to verify the patient's name, date of , and procedure to be performed. The skin overlying the L4-L5 level was prepped and draped in usual sterile fashion. Subcutaneous 1% lidocaine was used for local anesthesia. Utilizing a left pa ramedial approach a 22 gauge spinal needle was advanced under fluoroscopic guidance. The needle was r emoved and the entry site was cleaned and dressed. The patient was returned to the floor with no imme diate complications. A total of 2 fluoroscopic images and one lateral radiograph were obtained. The a mount of fluoroscopy time used during this procedure was 0.2 minutes. FINDINGS: Real-time fluoroscopy demonstrates the needle at the L4-L5 level. Opening pressure was 19 c m water. (Normal range is variably defined as 6-20 cm water and up to 25 cm water in obese patients. Pressure >25 cm water is one of the modified Dandy criteria for idiopathic intracranial hypertension) . 12 mL of clear, colorless fluid was collected in 4 tubes. IMPRESSION: 1. Successful fluoro-guided lumbar puncture with opening pressure of 19 cm water. Reviewed, dictated and finalized at location A. IMPRESSION: 1. Successful fluoro-guided lumbar puncture with opening pressure of 19 cm wate yadira
--- NOTE | ~2023-08-28 | CT_ITS ---
EXAMINATION: CT soft tissue neck w con DATE: 08/28/2023 21:57 INDICATION: Neck pain. Fever. TECHNIQUE: Computed tomography (CT) of the neck was performed with 100 mL Omnipaque-350 intravenous c ontrast. The dose-length product was 1116.20 mGy-cm. COMPARISON: CT brain same date; CT chest 02/02/2023 FINDINGS: The thyroid gland is unremarkable. The submandibular and parotid glands are symmetric. There is n o cervical lymphadenopathy. There are no masses identified. Aortic ectasia and mild arch calcific ation. Cardiomegaly. Large hiatal hernia. Aortic valve and coronary artery calcifications. The airwa y is unremarkable. Parapharyngeal and pre-glottic fat planes are preserved. Calcified plaques at the carotid bifurcations. Bilateral lens replacements. Visualized sinuses and mastoid air cells are well aerated. Biapical pleural scarring. Stable pulmonary nodules. Mild interlobular septal thicke sukhdev with possible peripheral reticulation. There is cervical spondylosis and facet arthropathy. IMPRESSION: No CT finding to explain neck pain or fever. Mild interstitial edema versus chronic interstitial change. Reviewed, dictated and finalized at location K.
[2023-08-28 20:34] LABS: Basophils Percent Auto 0.4 % (0.2-1.2); Eosinophils Percent Auto 0.4 % (0-4.4); Hematocrit 37.2 % (37.0-47.0); Hemoglobin 11.9 g/dL (12.0-15.0); Immature Granulocyte Absolute 0.03 K/mm3 (0.00-0.031); Immature Granulocyte Percent A 0.4 % (0-0.5); Lymphocytes Absolute Auto 1.28 K/mm3 (0.9-3.2); Lymphocytes Percent Auto 17.9 % (18.3-44.2); Mean Corpuscular Hemoglobin 29.6 pg (26-34); Mean Corpuscular Volume 92.5 fl (80-100); Mean Platelet Volume 10.2 fl (7.4-10.4); Monocytes Percent Auto 13.7 % (2.6-8.5); Neutrophils Absolute Auto 4.8 K/mm3 (1.3-6.7); Neutrophils Percent Auto 67.2 % (45.5-73.1); Platelet Count Result 277 k/mm3 (150-375); Red Blood Count 4.02 M/mm3 (4.2-5.4); Red Cell Distribution Width 14.6 % (11.5-14.5); White Blood Count 7.2 K/mm3 (4.5-10.0)
--- NOTE | 2023-08-28 20:36 | ED.GENADULT ---
HPI - General Adult General Chief complaint: Neck Pain/Injury Stated complaint: Stiff neck and fever Time Seen by Provider: 08/28/23 20:22 History of Present Illness HPI narrative: Patient is a 82-year-old female who presents the emergency department with chief complaint of stiff neck and fever. Patient reports for several days she has been having progressive pain in her neck patient reports on bilateral sides of her neck reports it radiates to the occipital portion of her head patient reports no headache denies photophobia does report that her neck feels stiff and it is worse with movement. Patient reports no trauma reports no sore throat runny nose denies cough denies abdominal pain denies dysuria patient reports that back in June she had a knee replacement of her left knee at that time she did have spinal anesthesia with her general anesthesia patient reports no pain in her low back denies numbness or tingling denies focal neurological deficit. Related Data Home Medications Medication Instructions Recorded Confirmed aspirin 81 mg tablet,delayed 81 mg PO DAILY 10/01/19 08/03/23 release (Adult Low Dose Aspirin) omega 3,6,9 combination no.7 92 mg 1 mg PO DIRECTED 10/01/19 08/03/23 (43 mg-22 [id number]) chew tablet vit C 50 mg-E 15 unit-zinc cit 4.5 1 tablet PO DAILY 10/06/20 08/03/23 mg-lutein 2.5 mg-zeaxan chew tablet [facility]) vitamin B complex (B 1 tablet PO DAILY 07/30/22 08/03/23 Complex-Vitamin B12 tablet) thiamine HCl (vitamin B1) 25 mg mg PO 01/26/23 08/03/23 tablet mag gx-lnrudei-ebqwalpli-e-bilber ml PO 04/08/23 08/03/23 300 mg-600 mg-100 mg/15 mL oral susp febuxostat 40 mg tablet 40 mg PO DAILY 08/03/23 08/03/23 Allergies Allergy/AdvReac Type Severity Reaction Status Date / Time codeine Allergy Unknown Vomiting Verified 08/28/23 20:16 Sulfa (Sulfonamide AdvReac Unknown Vomiting Verified 08/28/23 20:16 Antibiotics) Review of Systems Review of Systems: A 10 system review of systems was completed on the patient and is negative except for what is stated in the HPI. Nursing and ancillary documentation was reviewed. [facility] Past Medical History Medical History Allergies Cataract Left eye 12/2017 CKD (chronic kidney disease) Constipation Crohn disease Fracture of vertebra Fullness of neck Hyperlipidemia Hypertension Lateral meniscal tear Medial meniscus tear Osteopenia Post-menopausal Tear meniscus knee TIA (transient ischemic attack) Vertigo Surgical History Surgical History H/O lateral meniscus repair of left knee H/O: hysterectomy History of appendectomy History of knee replacement Family History Family History Father Family history of malignant neoplasm, Onset Age: 87 Social History Social History Social History: caffeine-coffee daily, 1 cup Smoking status: Never smoker Tobacco type: cigarettes Alcohol intake: never Substance use: never Lack of Transportation: No Lack of Food: Never True Current Housing: I Have Housing Concerned About Future Housing: No Difficulty Paying Gas/Electric Bills: No Difficulty Paying for Meds: No Currently Unemployed: No Education: High School Diploma/GED Difficulty w/ Childcare or Family Care: No Gender identity (if verbalized by the patient): Female Exam Narrative: GENERAL: Well-appearing, well-nourished, and in no acute distress. HEAD: Normocephalic, atraumatic. EYES: PERRLA and EOMI. ENT: Nares clear, no rhinorrhea or epistaxis. Mucous membranes moist. NECK: Supple. Tenderness to palpation the paraspinous muscles of the neck CHEST: Clear to auscultation. No respiratory distress. HEART: Regular rate and rhythm. No murmur he
[2023-08-28] MEDS: SODIUM CHLORIDE 0.9% IV 1,000 ML 999 ML IV CONT (20:38)
[2023-08-28] MEDS: KETOROLAC 15 MG/ML VIAL (*BKC) IV PUSH (20:39)
[2023-08-28] MEDS: ACETAMINOPHEN 500 MG TABLET 1000 MG PO (20:39)
[2023-08-28 20:45] LABS: Lactic Acid Reflex 1.1 mmol/L (0.7-2.0)
[2023-08-28 20:58] LABS: Alanine Aminotransferase 25 U/L (6-35); Albumin Level 3.9 g/dL (3.5-5.1); Alkaline Phosphatase 122 U/L (38-126); Anion Gap 6 mmol/L (8-16); Aspartate Amino Transferase 39 U/L (14-36); Bilirubin,Total 1.3 mg/dL (0.2-1.3); Blood Urea Nitrogen 13 mg/dL (7-17); Carbon Dioxide 24 mmol/L (22-30); Chloride 105 mmol/L (98-107); Estimated CRCL calculation 37 ml/min; Estimated Glomerular Filt Rate 48; Glucose 131 mg/dL (65-110); Magnesium 2.4 mg/dL (1.6-2.3); Potassium 3.7 mmol/L (3.4-5.0); Sodium 135 mmol/L (137-145)
[2023-08-28 20:59] LABS: Prothrombin Time 14.1 Seconds (11.1-14.7)
[2023-08-28 21:00] LABS: Partial Thromboplastin Time 27.6 SECONDS (22.3-36.8)
[2023-08-28 21:01] LABS: CRP 14.4 mg/dL (<1.0)
[2023-08-28 21:10] LABS: Procalcitonin 0.1 ng/mL
[2023-08-28 21:10] LABS: Appearance Urine Turbid (Clear); Bacteria Urine None Seen /hpf; Bilirubin Urine Negative (Negative); Blood Urine Negative (Negative); Color Urine Yellow (Yellow); Glucose Urine UA Negative (Negative); Ketones Urine Trace mg/dL (Negative); Leukocyte Esterase Ur Negative LEU/UL (Negative); Nitrate Urine Negative (Negative); Non Pathogenic Casts 0-2; Protein Urine Trace mg/dL (Negative); Specific Grav Ur 1.017 (1.001-1.035); Squamous Epithelial Cell Urine Few /hpf (Few); WBC Urine 0-5 /hpf
[2023-08-28 21:11] LABS: Troponin I < 0.012 ng/mL (0.000-0.034)
[2023-08-28 21:12] LABS: Strep Group A RT-PCR NOT DETECTED (Negative)
[2023-08-28 21:15] LABS: Add Urine Microscopic? YES
[2023-08-28 21:16] LABS: Erythrocyte Sedimentation Rate 27 mm/hr (0-20)
[2023-08-28 21:24] LABS: Influenza A QL RT-PCR Negative (Negative); Influenza B QL RT-PCR Negative (Negative); SARS-CoV-2 RNA PCR Negative (Negative)
[2023-08-29] VITALS (8 sets, daily range): BP systolic 127–156; BP diastolic 76–100; PULSE 73–92; RESP 12–18; TEMP 36.4–37.4; O2SAT 93–97; BMI 32.9
[2023-08-29] MEDS: cefTRIAXone 2 GM/NS 100 ML 2 GM/100 ML BAG IVPB (00:02)
--- NOTE | 2023-08-29 00:56 | PM.IMHP ---
H&P: HPI History of Present Illness Date/Time: 08/29/23 00:56 Chief Complaint: Neck stiffness Narrative: This is an 82 yo female with PMHx significant for HTN,DJD, Restless leg syndrome, L Knee total arthroplasty in [place]. Patient comes today to ED due to neck pain and stiffness, had fever episode of 103, has occipital headache as well, no vision changes, no nausea, no vomiting no diarrhea, no abdominal pain, no cough, no sputum production. Preliminary work up has been essentially unrevealing. Patient is been admitted for further evaluation, management and treatment. EXAMINATION:? XR chest 1V portable Exam Date/Time:? 08/28/2023 20:30 CDT HISTORY: FEVER NECK PAIN ? Comparison:? 03/12/2022. RESULT: Lines, tubes, and devices:? None. Lungs and pleura:? Senescent changes and bibasilar scar/atelectasis, otherwise clear. Cardiomediastinal silhouette:? Stable. Moderate hiatal hernia Other:? No acute osseous or upper abdominal finding. ? IMPRESSION: No acute cardiopulmonary process. EXAMINATION: CT brain wo con DATE: 08/28/2023 21:56 INDICATION: neck pain, fever . TECHNIQUE: Computed tomography (CT) of the head was performed without intravenous contrast. The mA was adjusted according to patient size. Iterative reconstruction technique was employed. The dose-length product was 605.33 mGy-cm. COMPARISON: 07/15/2016. FINDINGS: No acute intracranial hemorrhage or extra-axial fluid collection. No hydrocephalus, mass, or herniation. No acute ischemic infarct. Unremarkable dural venous sinus attenuation. No acute osseous abnormality. The? aerated spaces are clear. Moderate atrophy and chronic white matter change. Atherosclerotic intracranial calcification. Old left lacunar infarction. Bilateral lens replacements. IMPRESSION:? No acute intracranial process. EXAMINATION: CT soft tissue neck w con DATE: 08/28/2023 21:57 INDICATION: Neck pain. Fever. TECHNIQUE: Computed tomography (CT) of the neck was performed with 100 mL Omnipaque-350 intravenous contrast. The dose-length product was 1116.20 mGy-cm. COMPARISON: CT brain same date; CT chest 02/02/2023 FINDINGS: The thyroid gland is unremarkable. ? The submandibular and parotid glands are symmetric. ? There is no cervical lymphadenopathy.? There are no masses identified.? ? Aortic ectasia and mild arch calcification. Cardiomegaly. Large hiatal hernia. Aortic valve and coronary artery calcifications.? The airway is unremarkable. ? Parapharyngeal and pre-glottic fat planes are preserved. ? Calcified plaques at the carotid bifurcations.? Bilateral lens replacements.? Visualized sinuses and mastoid air cells are well aerated. ? Biapical pleural scarring. Stable pulmonary nodules. Mild interlobular septal thickening with possible peripheral reticulation.? There is cervical spondylosis and facet arthropathy. IMPRESSION: No CT finding to explain neck pain or fever. Mild interstitial edema versus chronic interstitial change. Review of Systems Review of Systems: neck stiffness, fever Constitutional: Constitutional: Denies fatigue, Reports fever(s), Denies malaise and Denies weakness Eyes: Eyes: Denies change in vision ENT: Denies dysphagia, Denies vertigo, Denies dizziness, Denies nasal congestion, Denies nasal discharge, Denies nasal trauma and Denies odynophagia Respiratory: Respiratory: Denies chest congestion, Denies cough, Denies excessive phlegm production and Denies dyspnea Gastrointestinal: Gastrointestinal: Denies abdominal pain, Denies dyspepsia, Denies heartburn, Denies diarrhea, Denies nausea and Denies vomiting Genitourinary: Genitourinary: Denies dysuria and Denies flank pain Musculoskeletal: Musculoskeletal: Reports other (neck stiffness) Integumentary/Breasts: Skin/Breast: Denies rash Neurologic: Denies abnormal gait, Denies vertigo, Denies dizziness, Denies focal weakness and Denies Sensory deficit (Neuro) Psychiatric: Psychia
[2023-08-29] MEDS: VANCOMYCIN 1,250 MG/NS 250 ML 1,250 MG/250 ML BAG 166.67 MG IVPB (01:05)
--- NOTE | 2023-08-29 01:58 | ADMGEN ---
This patient, Hayley Jorge, was admitted to [facility] Surg Room 301-01. Patient/family oriented to hospital policies and general routines including ID bracelet, bed and alarms, visiting hours, pain management, procedures, bathroom and other care routines, personal items, smoking policy, room service/diet, and visiting hours. Information on how to activate the Rapid Response Team has been discussed. Patient/Family are encouraged to report perceived risks to care and to ask questions if they do not understand what they are told or what they should do.
[2023-08-29] MEDS: VANCOMYCIN 1,000 MG/NS 250 ML 1,000 MG/250 ML BAG 250 MG IVPB (02:23)
[2023-08-29] MEDS: MORPHINE SULFATE (*CRX) 4 MG/ML INJ 2 MG IV PUSH (03:11)
[2023-08-29 06:29] LABS: Basophils Percent Auto 0.4 % (0.2-1.2); Eosinophils Absolute Auto 0.1 K/mm3 (0-0.3); Eosinophils Percent Auto 0.9 % (0-4.4); Hematocrit 36.9 % (37.0-47.0); Hemoglobin 11.3 g/dL (12.0-15.0); Immature Granulocyte Absolute 0.03 K/mm3 (0.00-0.031); Immature Granulocyte Percent A 0.5 % (0-0.5); Lymphocytes Absolute Auto 1.02 K/mm3 (0.9-3.2); Lymphocytes Percent Auto 18.2 % (18.3-44.2); Mean Corpuscular HGB Conc 30.6 g/dl (32-36); Mean Corpuscular Hemoglobin 29.2 pg (26-34); Mean Corpuscular Volume 95.3 fl (80-100); Mean Platelet Volume 10.2 fl (7.4-10.4); Monocytes Absolute Auto 0.8 K/mm3 (0.1-0.6); Monocytes Percent Auto 14.3 % (2.6-8.5); Neutrophils Absolute Auto 3.7 K/mm3 (1.3-6.7); Neutrophils Percent Auto 65.7 % (45.5-73.1); Platelet Count Result 260 k/mm3 (150-375); Red Blood Count 3.87 M/mm3 (4.2-5.4); Red Cell Distribution Width 14.6 % (11.5-14.5); White Blood Count 5.6 K/mm3 (4.5-10.0)
[2023-08-29 06:37] LABS: Anion Gap 5 mmol/L (8-16); Blood Urea Nitrogen 12 mg/dL (7-17); Calcium 9.1 mg/dL (8.4-10.2); Carbon Dioxide 24 mmol/L (22-30); Chloride 109 mmol/L (98-107); Estimated CRCL calculation 43 ml/min; Estimated Glomerular Filt Rate 60; Glucose 104 mg/dL (65-110); Potassium 3.2 mmol/L (3.4-5.0); Sodium 138 mmol/L (137-145)
[2023-08-29 13:21] LABS: Glucose CSF 59 mg/dL (40-70); Total Protein CSF 39 mg/dL (12-60)
[2023-08-29 14:12] LABS: Appearance CSF Clear (Clear); CSF source CSF; Color CSF Colorless (Colorless); Nucleated Cell CSF 1 /uL (0-5); Red Blood Cell CSF 0 (0-2)
[2023-08-29 14:18] LABS: Lymphocytes CSF 60 % (40-80); Macrophages CSF 20; Neutrophils CSF 20 % (0-6)
[2023-08-30] MEDS: cefTRIAXone 2 GM/NS 100 ML 2 GM/100 ML BAG IVPB (00:28)
[2023-08-30 06:00] VITALS: BP 134/77; PULSE 68; RESP 16; TEMP 36.9; O2SAT 95
[2023-08-30] MEDS: ACETAMINOPHEN 325 MG TABLET 650 MG PO (06:35)
[2023-08-30 06:49] LABS: Estimated CRCL calculation 48 ml/min; Estimated Glomerular Filt Rate > 60
--- NOTE | 2023-08-30 10:50 | PM.IMPN ---
Progress Note: A&P Assessment and Plan (1) Acute febrile illness: Code(s): R50.9 - Fever, unspecified Status: Acute Assessment and Plan: Vancomycin and Rocephin initiated 08/29 LP 08/29, cultures, cytology pending Neuro consult ordered and pending Currently afebrile (2) Acute neck pain: Code(s): M54.2 - Cervicalgia Status: Acute Assessment and Plan: Unsure of etiology, do not suspect meningitis to highly, appreciate neurology consultation for confirmation Likely musculoskeletal etiology, unsure of associated fevers significance? (3) CKD (chronic kidney disease): Qualifiers: Chronic kidney disease stage: stage 3 (moderate) Qualified Code(s): N18.3 - Chronic kidney disease, stage 3 (moderate) Code(s): N18.9 - Chronic kidney disease, unspecified Status: Acute Assessment and Plan: Stable, monitor (4) Restless leg syndrome: Code(s): G25.81 - Restless legs syndrome Status: Acute Assessment and Plan: Continue Ropinirole (5) Hypertension: Qualifiers: Hypertension type: essential hypertension Qualified Code(s): I10 - Essential (primary) hypertension Code(s): I10 - Essential (primary) hypertension Status: Acute Assessment and Plan: Blood pressure reviewed 08/30 Continue home antihypertensives Plan DVT prophylaxis with SCDs GI prophylaxis not indicated Code status full code Subjective Date/time seen: 08/30/23 10:50 Interval history: 82-year-old female with history of hypertension, restless legs, status post total left knee in June 2023 is presenting with neck pain and stiffness as well as fever and currently being treated for possible meningitis. No overnight events noted. No chest pain or shortness of breath. No nausea, vomiting or diarrhea. No fevers or chills. Review of Systems Review of Systems: 12 point review of systems was assessed and was negative except as noted in the HPI Exam Narrative: General: No acute distress, alert and oriented per baseline HEENT: Atraumatic, normocephalic, mucous membranes moist CV: Regular rate and rhythm, S1, S2 Lungs: Clear to auscultation bilaterally, no rales or crackles noted, no wheezes, good air entry Abdomen: Soft, nontender, nondistended Extremities: Normal to inspection Skin: No rashes noted, no lesions or wounds seen Psych: Euthymic, normal affect Objective Data Vital Signs Vital Signs: Vital Signs - 24 hr 08/29/23 12:12 08/29/23 13:00 08/29/23 14:00 Temperature 97.9 F Pulse Rate 92 82 79 Respiratory Rate 12 16 18 Blood Pressure 150/100 H 156/93 H 136/92 H Pulse Oximetry 95 97 97 Oxygen Delivery 08/29/23 22:00 08/29/23 20:00 08/30/23 06:00 Temperature 99.3 F 98.4 F Pulse Rate 73 68 Respiratory Rate 18 16 Blood Pressure 130/76 134/77 Pulse Oximetry 93 95 Oxygen Delivery Room Air Intake/Output Intake/Output: Intake & Output 08/27/23 08/28/23 08/29/23 08/30/23 23:59 23:59 23:59 23:59 Intake Total 1000 458 840 Balance 1000 458 840 Meds/Results Medications: Active Medications Generic Name Dose Route Start Last Admin Trade Name Freq PRN Reason Stop Dose Admin Acetaminophen 650 mg 08/28/23 23:48 08/30/23 06:35 Acetaminophen 325 Mg Tablet PO 650 mg Q4H PRN Administration Mild Pain (1-3) or Fever Ceftriaxone Sodium 2 gm in 100 mls @ 200 mls/hr 08/30/23 00:00 08/30/23 00:50 Rocephin 2 Gm/Ns 100 Ml IVPB Infused Q24H SHARMIN Infusion Vancomycin HCl 1,500 mg in 500 mls @ 250 mls/hr 08/30/23 01:00 08/30/23 03:15 Vancomycin 1,500 Mg/D5w 500 Ml IVPB Infused Q24H SHARMIN Infusion Morphine Sulfate 2 mg 08/28/23 23:48 08/29/23 03:11 Morphine Sulfate (*Crx) 4 Mg/Ml Inj IV PUSH 2 mg Q2H PRN Administration Pain Rated 7-10 Radiology Results: ITS Impressions Chest X-Ray 08/28/23 21:13 IMPRESSION: No acut
[2023-08-30 11:07] LABS: Basophils Percent Auto 0.8 % (0.2-1.2); Eosinophils Absolute Auto 0.1 K/mm3 (0-0.3); Eosinophils Percent Auto 1.9 % (0-4.4); Hematocrit 36.9 % (37.0-47.0); Hemoglobin 11.7 g/dL (12.0-15.0); Immature Granulocyte Absolute 0.01 K/mm3 (0.00-0.031); Immature Granulocyte Percent A 0.2 % (0-0.5); Lymphocytes Absolute Auto 1.12 K/mm3 (0.9-3.2); Lymphocytes Percent Auto 23.7 % (18.3-44.2); Mean Corpuscular HGB Conc 31.7 g/dl (32-36); Mean Corpuscular Hemoglobin 29.5 pg (26-34); Mean Corpuscular Volume 93.2 fl (80-100); Mean Platelet Volume 10.6 fl (7.4-10.4); Monocytes Absolute Auto 0.8 K/mm3 (0.1-0.6); Monocytes Percent Auto 16.1 % (2.6-8.5); Neutrophils Absolute Auto 2.7 K/mm3 (1.3-6.7); Neutrophils Percent Auto 57.3 % (45.5-73.1); Platelet Count Result 306 k/mm3 (150-375); Red Blood Count 3.96 M/mm3 (4.2-5.4); Red Cell Distribution Width 14.6 % (11.5-14.5); White Blood Count 4.7 K/mm3 (4.5-10.0)
[2023-08-30 11:12] LABS: Alanine Aminotransferase 21 U/L (6-35); Albumin Level 3.5 g/dL (3.5-5.1); Alkaline Phosphatase 107 U/L (38-126); Anion Gap 8 mmol/L (8-16); Aspartate Amino Transferase 30 U/L (14-36); Bilirubin,Total 0.6 mg/dL (0.2-1.3); Blood Urea Nitrogen 11 mg/dL (7-17); Carbon Dioxide 19 mmol/L (22-30); Chloride 110 mmol/L (98-107); Estimated CRCL calculation 48 ml/min; Estimated Glomerular Filt Rate > 60; Glucose 114 mg/dL (65-110); Potassium 3.3 mmol/L (3.4-5.0); Sodium 137 mmol/L (137-145)
[2023-08-30 11:31] LABS: Procalcitonin 0.1 ng/mL
--- NOTE | 2023-08-30 11:48 | WPDNEURCNPN ---
Assessment and Plan Assessment and plan (1) Acute febrile illness: Code(s): R50.9 - Fever, unspecified Status: Acute Plan acute febrile illness with negative studies up until now patient is being treated for the possible meningitis with triple antibiotic at this stage her exam is completely nonfocal and normal, CBC was leukopenia and normal platelet count and spinal fluid studies were also only with CSF neutrophils 20 for the protein was normal cultures are pending he can continue antibiotic couple the final results are obtained, no changes at this particular time Consult date: 08/30/23 HPI: Hayley Jorge is a 82 year old female, Admitted to the hospital through the emergency room with the complaints of fever and stiff neck of several days duration along with the progressive pain in her neck and the sides of the neck on the both size radiating to the occipital portion of the head without any photophobia or phonophobia, gave no history of trauma no history of sore throat ,cough or any other generalized symptomatology, she has had a knee replacement on the left side in June, she received the spinal anesthesia along with the general anesthesia, she has been taking aspirin 81 mg daily along with febuxostat daily. she does have ongoing history of multiple medical problems including chronic kidney disease, Crohn's disease, hypertension, and TIA in the past. She is neither a smoker maneuver a drinker and initial exam in the emergency room was documented with no focal neurological deficit. Vital signs were normal except blood pressure 161/115 and the temp 37.8? CBC normal BMP fairly normal screening for influenza A,B, strep and sars were negative. CT of the head and chest x-ray negative, he also underwent spinal fluid studies with opening pressure of 19 CSF cell count was 20 with glucose of 59 and protein of only 39. Patient is already taking Rocephin 2 g IV piggyback Q 24 hours, vancomycin 1500 mg Q 24 hours IV piggyback along with the other medications. [facility]LY [facility] Past Medical History Medical History Allergies Cataract Left eye 12/2017 CKD (chronic kidney disease) Constipation Crohn disease Fracture of vertebra Fullness of neck Hyperlipidemia Hypertension Lateral meniscal tear Medial meniscus tear Osteopenia Post-menopausal Tear meniscus knee TIA (transient ischemic attack) Vertigo Surgical History Surgical History H/O lateral meniscus repair of left knee H/O: hysterectomy History of appendectomy History of knee replacement Family History Family History Father Family history of malignant neoplasm, Onset Age: 87 Social History Social History Social History: caffeine-coffee daily, 1 cup Smoking status: Never smoker Tobacco type: cigarettes Second hand tobacco smoke exposure: No Alcohol intake: never Substance use: never Substance use type: does not use Lack of Transportation: No Lack of Food: Never True Current Housing: I Have Housing Concerned About Future Housing: No Difficulty Paying Gas/Electric Bills: No Difficulty Paying for Meds: No Currently Unemployed: No Education: High School Diploma/GED Difficulty w/ Childcare or Family Care: No Gender identity (if verbalized by the patient): Female Spiritual care concerns: No Meds Home Medications and Allergies Home Medications Medication Instructions Recorded Confirmed Type aspirin 81 mg tablet,delayed 81 mg PO DAILY 10/01/19 08/29/23 History release (Adult Low Dose Aspirin) vit C 50 mg-E 15 unit-zinc cit 4.5 1 tablet PO DAILY 10/06/20 08/29/23 History mg-lutein 2.5 mg-zeaxan chew tablet ([facility]) ferrous sulfate 325 mg (65 mg 325 mg PO DAILY #90 tabs 02/19/22
[2023-08-30 13:32] VITALS: PULSE 68
[2023-08-30] MEDS: VITAMIN B COMPLEX CAPSULE 1 CAP PO (13:32)
[2023-08-30] MEDS: LOSARTAN POTASSIUM 25 MG TABLET PO (13:32)
[2023-08-30] MEDS: METOPROLOL TARTRATE 25 MG TABLET PO (13:32)
[2023-08-30] MEDS: OPTI-GEN TAB 1 TABLET PO (13:33)
[2023-08-30] MEDS: FERROUS SULFATE 325 MG TABLET DR PO (13:33)
[2023-08-30] MEDS: ASPIRIN 81 MG ENTERIC TABLET PO (13:33)
[2023-08-30 14:00] VITALS: BP 117/70; PULSE 72; RESP 15; TEMP 36.6; O2SAT 97
--- NOTE | 2023-08-30 14:37 | PM.DS ---
DS: Admitting Diagnosis Discharge Date 08/30/23 Admitting Diagnosis neck pain and fever DS: Discharge Diagnosis Discharge Diagnosis (1) Acute febrile illness: Code(s): R50.9 - Fever, unspecified Status: Acute Assessment and Plan: Vancomycin and Rocephin initiated 08/29 LP 08/29, cultures, cytology pending Neuro consult ordered and pending Currently afebrile (2) Acute neck pain: Code(s): M54.2 - Cervicalgia Status: Acute Assessment and Plan: Unsure of etiology, do not suspect meningitis to highly, appreciate neurology consultation for confirmation Likely musculoskeletal etiology, unsure of associated fevers significance? (3) CKD (chronic kidney disease): Qualifiers: Chronic kidney disease stage: stage 3 (moderate) Qualified Code(s): N18.3 - Chronic kidney disease, stage 3 (moderate) Code(s): N18.9 - Chronic kidney disease, unspecified Status: Acute Assessment and Plan: Stable, monitor (4) Restless leg syndrome: Code(s): G25.81 - Restless legs syndrome Status: Acute Assessment and Plan: Continue Ropinirole (5) Hypertension: Qualifiers: Hypertension type: essential hypertension Qualified Code(s): I10 - Essential (primary) hypertension Code(s): I10 - Essential (primary) hypertension Status: Acute Assessment and Plan: Blood pressure reviewed 08/30 Continue home antihypertensives Plan DVT prophylaxis with SCDs GI prophylaxis not indicated Code status full code DS: Summary Hospital Course Hospital Course: 82-year-old female with history of hypertension, restless legs, status post total left knee in June 2023 is presenting with neck pain and stiffness as well as fever and currently being treated for possible meningitis. Initial CSF workup negative for meningitis. All symptoms resolved, d/c on abx after neurology consult confirms no further workup necessary. Please see above and med rec for details. Patient was discharged in stable condition with close outpatient follow-up. Time Spent with Patient Time attestation: Total time spent providing and/or coordinating discharge services: Exam Narrative: General: No acute distress, alert and oriented per baseline HEENT: Atraumatic, normocephalic, mucous membranes moist CV: Regular rate and rhythm, S1, S2 Lungs: Clear to auscultation bilaterally, no rales or crackles noted, no wheezes, good air entry Abdomen: Soft, nontender, nondistended Extremities: Normal to inspection Skin: No rashes noted, no lesions or wounds seen Psych: Euthymic, normal affect DS: Data Data Completed and Pending Labs on day of discharge: Labs from last 24 hours 08/30/23 08/30/23 08/30/23 06:14 06:13 06:09 WBC 4.7 RBC 3.96 L Hgb 11.7 L Hct 36.9 L MCV 93.2 MCH 29.5 MCHC 31.7 L RDW 14.6 H Plt Count 306 MPV 10.6 H Immature Gran % (Auto) 0.2 Neut % (Auto) 57.3 Lymph % (Auto) 23.7 [place] % (Auto) 16.1 H Eos % (Auto) 1.9 Baso % (Auto) 0.8 Lymph # (Auto) 1.12 [place] # (Auto) 0.8 H Eos # (Auto) 0.1 Baso # (Auto) 0.0 Abs Immat Gran (auto) 0.01 Absolute Neuts (auto) 2.7 Absolute Nucleated RBC 0.0 Nucleated RBC % 0.0 Sodium 137 Potassium 3.3 L Chloride 110 H Carbon Dioxide 19 L Anion Gap 8 BUN 11 Creatinine 0.80 0.80 Estim Creat Clear Calc 48 48 Estimated GFR > 60 > 60 Glucose 114 H Calcium 9.0 Total Bilirubin 0.6 AST 30 ALT 21 Alkaline Phosphatase 107 C-Reactive Protein 15.0 H Total Protein 7.0 Albumin 3.5 Procalcitonin 0.1 Preliminary micro results at discharge 08/28/23 20:41 Blood Culture - Preliminary Blood 08/28/23 20:41 Blood Culture - Preliminary Blood Discharge Plan Discharge Attending physician on discharge: Hannah Oliva Consulting providers: Anup Davis
--- NOTE | 2023-08-30 15:52 | PC.NURSE ---
patient taken by wheelchair, family picking up. denies questions regarding d/c and d/c papers. IV out.
[2023-08-31 12:55] LABS: Herpes Simplex Type 1 DNA PCR Not Detected (Not Detected); Herpes Simplex Type 2 DNA PCR Not Detected (Not Detected)
[2023-08-31 13:44] LABS: VZV DNA, QL PCR Not Detected (Not Detected); Varicella Zoster Source CSF
[2023-08-31 21:05] LABS: Source CSF
[2023-09-01 09:34] LABS: Epstein Barr Virus DNA PCR Not Detected (Not Detected); Source Epstein Barr Virus CSF
[2023-09-06 12:41] LABS: VDRL Quantitative CSF Nonreactive (Nonreactive)
== END 2023-08-30 15:50 | disposition home or self-care (01) | DRG 864 ==
LOC: ANHED 21:04 → ANH3MEDSUR 08-29 01:07
PROVIDERS: Admitting Provider Internal Medicine; Emergency Provider Emergency Medicine; PCP Internal Medicine; Visit Provider Student in an Organized Health Care Education/Training Program
DX: R50.9 Fever, unspecified (principal); M54.2 Cervicalgia; M43.6 Torticollis; I12.9 Hypertensive chronic kidney disease with stage 1 through stage 4 chronic kidney disease, or unspecified chronic kidney disease; N18.30 Chronic kidney disease, stage 3 unspecified; G25.81 Restless legs syndrome; E78.5 Hyperlipidemia, unspecified; M85.80 Other specified disorders of bone density and structure, unspecified site; Z20.822 Contact with and (suspected) exposure to COVID-19; Z96.652 Presence of left artificial knee joint; Z79.82 Long term (current) use of aspirin; Z86.73 Personal history of transient ischemic attack (TIA), and cerebral infarction without residual deficits; Z90.49 Acquired absence of other specified parts of digestive tract
CPT/HCPCS: 36415; 62328; 70450; 70491; 71045; 80048; 80053; 81001; 82565; 82945; 83605; 83615; 83735; 84145; 84157; 84484; 85025; 85610; 85652; 85730; 86140; 86592; 87040; 87070; 87102; 87206; 87529; 87636; 87651; 87798; 89051; 96361; 96365; 96375; 96376; 99285; A9270; G0378; J0696; J1885; J2270; J3370; J7030; Q9967

== ENCOUNTER 2023-09-21 10:11 | Outpatient (CLI) | payer MEDICARE, SELFPAY ==
[2023-09-21 19:04] LABS: Basophils Percent Auto 0.4 % (0.2-1.2); Eosinophils Absolute Auto 0.1 K/mm3 (0-0.3); Eosinophils Percent Auto 1.9 % (0-4.4); Hematocrit 41.2 % (37.0-47.0); Immature Granulocyte Absolute 0.02 K/mm3 (0.00-0.031); Immature Granulocyte Percent A 0.3 % (0-0.5); Lymphocytes Absolute Auto 1.64 K/mm3 (0.9-3.2); Lymphocytes Percent Auto 24.5 % (18.3-44.2); Mean Corpuscular HGB Conc 31.6 g/dl (32-36); Mean Corpuscular Hemoglobin 29.3 pg (26-34); Mean Platelet Volume 11.1 fl (7.4-10.4); Monocytes Percent Auto 14.8 % (2.6-8.5); Neutrophils Absolute Auto 3.9 K/mm3 (1.3-6.7); Neutrophils Percent Auto 58.1 % (45.5-73.1); Platelet Count Result 217 k/mm3 (150-375); Red Blood Count 4.43 M/mm3 (4.2-5.4); Red Cell Distribution Width 14.6 % (11.5-14.5); White Blood Count 6.7 K/mm3 (4.5-10.0)
[2023-09-21 20:34] LABS: Alanine Aminotransferase 16 U/L (6-35); Albumin Level 3.8 g/dL (3.5-5.1); Alkaline Phosphatase 104 U/L (38-126); Anion Gap 8 mmol/L (8-16); Aspartate Amino Transferase 26 U/L (14-36); Bilirubin,Total 0.8 mg/dL (0.2-1.3); Blood Urea Nitrogen 16 mg/dL (7-17); Calcium 9.9 mg/dL (8.4-10.2); Carbon Dioxide 25 mmol/L (22-30); Chloride 108 mmol/L (98-107); Estimated Glomerular Filt Rate 48; Glucose 120 mg/dL (65-110); Potassium 4.5 mmol/L (3.4-5.0); Sodium 141 mmol/L (137-145)
== END 2023-09-21 10:12 | disposition home or self-care (01) ==
LOC: ANHGOSHLAB 10:13
PROVIDERS: PCP Internal Medicine; Visit Provider Nurse Practitioner
DX: R79.0 Abnormal level of blood mineral (principal); R50.9 Fever, unspecified; I10 Essential (primary) hypertension
CPT/HCPCS: 36415; 80053; 82728; 85025

== ENCOUNTER → 2023-09-27 15:13 | Outpatient (CLI) | payer MEDICARE, SELFPAY ==
--- NOTE | ~2023-09-27 | CT_ITS ---
EXAMINATION: CTA chest PE protocol DATE: 09/27/2023 15:39 INDICATION: Shortness of breath TECHNIQUE: Computed tomography (CT) pulmonary angiogram of the chest was performed with 100 mL Omnipa que-350 intravenous contrast. Additional 3D reconstructions utilizing coronal maximum intensity proje ction (MIP) were performed. Automated exposure control and iterative reconstruction technique were em ployed. The dose-length product was 681.74 mGy-cm. COMPARISON: None FINDINGS: Excellent contrast opacification of the pulmonary arteries. There is mild streak artifact from dense contrast in the superior vena cava and right atrium. Mild scattered respiratory motion artifact which does not significantly limit evaluation. Pulmonary arterial filling defect in the superior segmental pulmonary artery of the lingula extending occlusive into one of the 2 subsegmental branches. Additio nal small amount of nonocclusive pulmonary embolism at the origin of the inferior segment of pulmonar y artery of the lingula. Additional large pulmonary embolism in the right lower lobar pulmonary arter y which extends into the superior segmental and each of the basilar segmental and subsegmental pulmon mitra arteries. Several of the basilar segmental and subsegmental pulmonary arteries appear occluded. T here is additional small amount of pulmonary embolism at the trifurcation of the right upper lobar pu lmonary artery. There is mild dependent and nasal or atelectasis in the bilateral lower lobes along w ith compressive atelectasis at the medial aspect of the bilateral lower lobes along the margins of a large sliding-type hiatal hernia which contains the majority the stomach. No pneumonia, pulmonary kody ma or pleural effusion. Likely benign 8 x 4 mm pleural-based nodule at the anterobasilar segment of t he right lower lobe which is without significant interval change dating back to 10/09/2020. There is m ild enlargement of the central pulmonary arteries consistent with pulmonary arterial hypertension. He art size is normal. No leftward bowing of the ventricular septum to suggest right heart strain. No pe ricardial effusion. Thoracic aorta is normal in caliber with no dissection. No pathologically enlarge d thoracic lymphadenopathy. Thoracic kyphosis with a few chronic midthoracic compression fractures an d moderate spondylosis. IMPRESSION: 1. Multiple pulmonary emboli with moderate clot burden. There is enlargement of the central pulmonary arteries consistent with pulmonary arterial hypertension but no evident right heart strain. Findings were discussed with Dr. Quinn at 4:12 PM 2. Large sliding-type hiatal hernia. Reviewed, dictated and finalized at location A. L OPERATIONS TECHNICIAN IMPRESSION: 1. Multiple pulmonary emboli with moderate clot burden. There is enlargement of the central pulmonary arteries consistent with pulmonary arterial hypertension but no evident right heart strain. Findings were discussed with Dr. Quinn at 4 :12 PM 2. Large sliding-type hiatal hernia.
== END ==
PROVIDERS: PCP Internal Medicine Nephrology; Visit Provider Nurse Practitioner
DX: R06.02 Shortness of breath (principal); I26.99 Other pulmonary embolism without acute cor pulmonale; K44.9 Diaphragmatic hernia without obstruction or gangrene
CPT/HCPCS: 71275; Q9967

== ENCOUNTER 2023-10-18 14:04 | Outpatient (CLI) | payer MEDICARE, SELFPAY ==
--- NOTE | ~2023-10-18 | US_ITS ---
EXAMINATION:US venous doppler LE BI INDICATION:Pulmonary embolism. History of knee replacement. TECHNIQUE: Multiple grayscale, color flow and Doppler images of the right and left lower extremity de ep venous systems were obtained and reviewed. COMPARISON:No prior studies for comparison. FINDINGS: The common femoral, superficial femoral and popliteal veins demonstrate normal respiratory variation, augmentation and compressibility. Color flow is also seen within the posterior tibial, pe roneal, greater saphenous and profunda veins. IMPRESSION: 1: No lower extremity deep venous thrombosis. Reviewed, dictated and finalized at location A. GRATION SOFTWARE DEVELOPER
== END 2023-10-18 14:05 | disposition home or self-care (01) ==
PROVIDERS: PCP Nurse Practitioner; Visit Provider Nurse Practitioner
DX: I26.99 Other pulmonary embolism without acute cor pulmonale (principal)
CPT/HCPCS: 93970

== ENCOUNTER 2024-03-27 06:34 | Outpatient (CLI) | payer MEDICARE, SELFPAY ==
--- NOTE | ~2024-03-27 | CT_ITS ---
Clinical Indication: Pulmonary embolus CT Scan of the Chest with Contrast: Technique: Contiguous sections were acquired throughout the chest after intravenous administration of 100 cc of Omnipaque 350. Dose reduction technique was used on this scan by utilizing automated expos ure control and iterative reconstruction technique. The dose-length product (DLP) was 535.22 mGy-cm. COMPARISON: 09/27/2023 Findings: There is no evidence of any significant mediastinal, hilar or axillary lymphadenopathy. There is no f illing defect in the pulmonary arterial tree to suggest pulmonary embolus. There is no evidence of ao rtic dissection or aneurysm. There is no evidence of pleural or pericardial effusion. Stable 5 mm nodule along the right minor fissure (axial image 47). Stable additional 5 mm right lower lobe pulmonary nodule (axial image 61). There is minimal left basilar atelectatic change. Images through the upper abdomen reveal large hiatal hernia, containing the entire stomach, with orga noaxial volvulus. Chronic T8 compression fracture is unchanged. Impression: No evidence of pulmonary embolus, aortic dissection, or aortic aneurysm. Stable subcentimeter pulmonary nodules, as above. Large hiatal hernia, containing the entire stomach, with organoaxial volvulus. Chronic T8 compression fracture, unchanged. Reviewed, dictated and finalized at location . Impression: No evidence of pulmonary embolus, aortic dissection, or aortic aneurysm. Stable subcentimeter pulmonary nodules, as above. Large hiatal hernia, containing the entire stomach, with organoaxial volvulus. Chronic T8 compression fracture, unchanged.
[2024-03-27 07:05] LABS: Estimated Glomerular Filt Rate 39
== END 2024-03-27 06:35 | disposition home or self-care (01) ==
PROVIDERS: PCP Nurse Practitioner; Visit Provider Nurse Practitioner
DX: R91.8 Other nonspecific abnormal finding of lung field (principal); K44.9 Diaphragmatic hernia without obstruction or gangrene; M48.54XD Collapsed vertebra, not elsewhere classified, thoracic region, subsequent encounter for fracture with routine healing
CPT/HCPCS: 71275; Q9967

== ENCOUNTER → 2024-06-26 13:27 | Outpatient (REF) | payer MEDICARE, SELFPAY | LOC: ANHLAB 13:27 | PROVIDERS: PCP Nurse Practitioner; Visit Provider Plastic Surgery | DX: C44.529 Squamous cell carcinoma of skin of other part of trunk (principal) | CPT/HCPCS: 88305 ==

== ENCOUNTER 2024-07-27 09:09 | Outpatient (CLI) | payer MEDICARE, SELFPAY ==
--- NOTE | ~2024-07-27 | XR_ITS ---
EXAMINATION: XR chest 2V DATE: 07/27/2024 09:33 INDICATION: Chest pain, unspecified. TECHNIQUE: Frontal and lateral views of the chest were obtained on 3 radiographs. COMPARISON: Chest single view 08/28/2023, chest 2 views 03/12/2022 FINDINGS: There is no pneumonia, pleural effusion or pneumothorax. The heart size is normal. There is a large hiatal hernia. There is chronic height loss of multiple vertebral bodies. IMPRESSION: 1. Large hiatal hernia. Reviewed, dictated and finalized at location A. IMPRESSION: 1. Large hiatal hernia.
== END 2024-07-27 09:10 | disposition home or self-care (01) ==
PROVIDERS: PCP Nurse Practitioner; Visit Provider Nurse Practitioner
DX: R07.9 Chest pain, unspecified (principal); K44.9 Diaphragmatic hernia without obstruction or gangrene
CPT/HCPCS: 71046

== ENCOUNTER 2025-01-07 14:31 | Emergency (ER) | payer MEDICARE, SELFPAY ==
--- NOTE | 2025-01-07 14:48 | ED.GENADULT ---
HPI - General Adult General Chief complaint: Extremity Injury, Lower Stated complaint: right ankle hurts,swollen Time Seen by Provider: 01/07/25 14:59 Source: patient, RN notes reviewed and old records reviewed Mode of arrival: ambulatory Limitations: no limitations History of Present Illness HPI narrative: 84-year-old female presents to the [facility] with medial right ankle pain. Reports swelling. States that she was using and ankle massager and after she stopped using it developed some pain to the medial aspect of the right ankle. Swelling is noted. Denies taking anything for her symptoms. Symptoms started Tuesday, 2 days ago Onset (ago): day(s) (2) Related Data Home Medications ?Medication ?Instructions ?Recorded ?Confirmed ?Last Taken ?Type aspirin 81 mg tablet,delayed 81 mg PO DAILY 10/01/19 11/21/24 08/27/23 History release (Adult Low Dose Aspirin) vit C 50 mg-E 15 unit-zinc cit 4.5 1 tablet PO DAILY 10/06/20 11/21/24 08/27/23 History mg-lutein 2.5 mg-zeaxan chew tablet ([employer]) vitamin B complex (B 1 tablet PO DAILY 07/30/22 11/21/24 08/27/23 History Complex-Vitamin B12 tablet) collagen, hydrolyzed 1 tablet PO 07/27/24 11/21/24 Unknown History gram-ascorbate calcium 10 mg tablet omega-3 fatty acids 1,000 mg 1,000 mg PO DAILY 07/27/24 11/21/24 Unknown History capsule Allergies Allergy/AdvReac Type Severity Reaction Status Date / Time codeine Allergy Unknown Vomiting Verified 01/07/25 14:59 Sulfa (Sulfonamide AdvReac Unknown Vomiting Verified 01/07/25 14:59 Antibiotics) Review of Systems Review of Systems: All systems reviewed & are unremarkable except as noted in HPI and below Constitutional: Constitutional: Reports no additional constitutional complaints ENT: Reports system reviewed and no additional complaints, except as documented Cardiovascular: Cardiovascular: Reports no additional cardiovascular complaints, Denies chest pain and Denies dyspnea Respiratory: Respiratory: Reports no additional respiratory complaints, Denies chest congestion, Denies cough and Denies dyspnea Musculoskeletal: Musculoskeletal: Reports as per HPI and Reports arthralgias Integumentary/Breasts: Skin/Breast: Reports system reviewed and no additional complaints, except as docu PMFSH Past Medical History Medical History Fullness of neck Tear meniscus knee Lateral meniscal tear Medial meniscus tear Constipation Fracture of vertebra Osteopenia Vertigo Crohn disease Cataract Left eye 12/2017 TIA (transient ischemic attack) CKD (chronic kidney disease) Hypertension Hyperlipidemia Post-menopausal Allergies Surgical History Surgical History History of knee replacement H/O lateral meniscus repair of left knee H/O: hysterectomy History of appendectomy Family History Family History Father Family history of malignant neoplasm, Onset Age: 87 Social History Social History Social History: caffeine-coffee daily, 1 cup Smoking status: Never smoker Tobacco type: cigarettes Second hand tobacco smoke exposure: No Alcohol intake: never Substance use: never Substance use type: does not use Do You Feel Safe in your Home?: Yes Lack of Transportation: No Lack of Food: Never True Current Housing: Decline to Answer Concerned About Future Housing: Decline to Answer Difficulty Paying Gas/Electric Bills: Decline to Answer Difficulty Paying for Meds: Decline to Answer Currently Unemployed: Decline to Answer Education: Decline to Answer Difficulty w/ Childcare or Family Care: Decline to Answer Gender identity (if verbalized by the patient): Female Spiritual care concerns: No Comments At the time of my signature, I reviewed and agree with the nursing past medical, surgical, social, and family history. There is no relevant family history pertinent to the patient complaint. Exam Const: General: cooperative, healthy appearing, comfortable, no acute distress, well developed, alert and well nourished Nutritional Appearance: well nourished Orientation/consciousness: patient oriented x3 Limitations: no limitations HENMT: Head: normal to inspection Eyes: General: appearance normal, both eyes and all related structures Alignment and Position: alignment normal Neck: Neck: normal visual inspection, full ROM, no lymphadenopathy and no meningeal signs Chest: Chest palpation & inspection: normal inspection of the chest Resp: Effort & Inspection: normal respiratory effort and able to speak in complete sentences Cardio: Rate: regular rate Skin: General skin exam: normal color and no rashes or lesions noted Neuro: General: patient oriented x3, gait normal, moves all extremities and no meningeal signs Cognition (Neuro): normal cognition Speech: normal speech Gait exam (Neuro): Normal gait present Extrem: General: normal to inspection, full ROM, capillary refill normal and normal gait Right lower extremity: ankle Details: tenderness Location: of the medial malleolus and normal ROM; no swelling, no unusual warmth, no abrasions, no lacerations, no ecchymosis and no crepitus and foot Details: normal capillary refill and tenderness Location: of the medial foot Psych: Appearance: grossly normal and well kempt Mental Status: mental status grossly normal Speech and movement: Normal speech and movement present and Clear speech present Affect: normal affect Attitude: cooperative Course Course Level of Care: Express Care Visit Vital Signs Vital signs: Vital Signs Temperature 97.3 F L 01/07/25 14:49 Pulse Rate 78 01/07/25 14:49 Respiratory Rate 16 01/07/25 14:49 Blood Pressure 155/94 H 01/07/25 14:49 Pulse Oximetry 98 01/07/25 14:49 Oxygen Delivery Room Air 01/07/25 14:49 Temperature 97.3 F L 01/07/25 14:49 Pulse Rate 78 01/07/25 14:49 Respiratory Rate 16 01/07/25 14:49 Blood Pressure 155/94 H 01/07/25 14:49 Pulse Oximetry 98 01/07/25 14:49 Oxygen Delivery Room Air 01/07/25 14:49 Reviewed Medical Decision Making MDM Narrative Medical decision making narrative: Patient sitting comfortably in exam room. Nontoxic, vitals stable. Patient in no acute distress Patient presents for right medial ankle discomfort after using an ankle massager. X-ray with no acute findings. Patient appropriate for outpatient treatment and follow Discharge instructions reviewed with patient, as well as provided in writing per nursing staff. The instructions also include specific and strict return/GO TO THE ER as well as f/u information. All questions have been answered, and the patient deny any further questions with discharge and discharge plan. Some parts of this dictation were generated by voice recognition software and may contain typographical and/or grammatical inaccuracies. Differential Diagnosis Differential Diagnosis: Contusion, strain, ligament issue Medical Records Medical records reviewed: Yes I reviewed the external patient's medical records. Vital Signs Vital Signs: Vital Signs Temperature 97.3 F L 01/07/25 14:49 Pulse Rate 78 01/07/25 14:49 Respiratory Rate 16 01/07/25 14:49 Blood Pressure 155/94 H 01/07/25 14:49 Pulse Oximetry 98 01/07/25 14:49 Oxygen Delivery Room Air 01/07/25 14:49 Temperature 97.3 F L 01/07/25 14:49 Pulse Rate 78 01/07/25 14:49 Respiratory Rate 16 01/07/25 14:49 Blood Pressure 155/94 H 01/07/25 14:49 Pulse Oximetry 98 01/07/25 14:49 Oxygen Delivery Room Air 01/07/25 14:49 Reviewed Lab Data Lab results reviewed: Yes I reviewed the patient's lab results. Labs: Reviewed Imaging Data Radiologist's impression: XR ankle RT 2V Ordering provider: Natalia Cortes APRN History: . rt medial ankle pain x 2 days used massage machine . Comparison: None. FINDINGS: BONES: No acute fracture or dislocation. Calcaneal spur. JOINT SPACES: Normal. SOFT TISSUES: Soft tissue swelling over the lateral malleolus. IMPRESSION: No acute osseous abnormality of the right ankle. Critical Care Time Critical Care Time Critical Care Time: No Discharge Plan Discharge Clinical Impression: Ankle pain, right Qualifiers: Chronicity: acute Qualified Code(s): M25.571 - Pain in right ankle and joints of right foot Patient Disposition: Home, Self-Care Condition: Stable Instructions: Arthralgia (ED) Additional Instructions: Your Xray did not show a fracture. Wear good supportive shoes at all times. Ice should be applied to help reduce swelling. It can be used for 20 to 30 minutes, every 2-3 hours while awake. Do not apply ice directly to your skin. ankle braces or nnamdi-wraps will help support your injured ankle. You can alternate ibuprofen 600mg and Tylenol 650mg every 4 hours as needed for pain Please schedule a follow-up visit with your personal physician for further evaluation and treatment within 2 weeks especially if symptoms persist. For new or worsening symptoms go directly to the emergency room Patient Language: [place] Prescriptions: No Action aspirin [Adult Low Dose Aspirin] 81 mg tablet,delayed release (DR/EC) 81 mg PO DAILY [facility] 50 mg-15 unit- 4.5 mg-2.5 mg tablet,chewable 1 tablet PO DAILY vitamin B complex [B Complex-Vitamin B12] Tablet 1 tablet PO DAILY omega-3 fatty acids 1,000 mg capsule 1,000 mg PO DAILY collagen,hydrolyz-ascorbate Ca 1 gram- 10 mg tablet PO ferrous sulfate 325 mg (65 mg iron) tablet 325 mg PO DAILY Qty: 90 0RF ergocalciferol (vitamin D2) 1,250 mcg (50,000 unit) capsule 50,000 unit PO WEEKLY Qty: 56 3RF Rx Instructions: Take 1 tablet by mouth twice weekly. metoprolol tartrate 25 mg tablet 25 mg PO DAILY Qty: 90 1RF Follow-up/Referrals: Nga Quinn NP [Primary Care Provider] - 2 Weeks ([facility] care follow up ) Time of Disposition: 15:33
[2025-01-07 14:49] VITALS: BP 155/94; PULSE 78; RESP 16; TEMP 36.3; O2SAT 98
== END 2025-01-07 15:35 | disposition home or self-care (01) ==
PROVIDERS: Emergency Provider Nurse Practitioner; PCP Nurse Practitioner
DX: M25.571 Pain in right ankle and joints of right foot (principal); K50.90 Crohn's disease, unspecified, without complications; I12.9 Hypertensive chronic kidney disease with stage 1 through stage 4 chronic kidney disease, or unspecified chronic kidney disease; N18.9 Chronic kidney disease, unspecified; E78.5 Hyperlipidemia, unspecified; M85.80 Other specified disorders of bone density and structure, unspecified site
CPT/HCPCS: 73600; 99213; G0463

== ENCOUNTER 2025-04-05 14:21 | Outpatient (CLI) | payer MEDICARE, SELFPAY ==
--- NOTE | ~2025-04-05 | US_ITS ---
EXAMINATION: US venous doppler LE RT DATE: 04/05/2025 15:06 INDICATION: Localized edema TECHNIQUE: Grayscale ultrasound images without and with compression and Doppler ultrasound images of the right lower extremity veins were obtained. COMPARISON: 10/18/2023. FINDINGS: The visualized portions of right common femoral vein, profunda (deep) femoral vein, femoral vein, pop liteal vein, peroneal veins, posterior tibial veins, and greater saphenous vein outflow are patent. IMPRESSION: 1. No deep venous thrombosis. Reviewed, dictated and finalized at location A.
--- OUTSIDE RECORDS SUMMARY | 2025-04-05 14:25 | XMS_ITS | Clinical Summary ---
Author Organization [facility] Address [address] [place] [address] Phone Care Team Providers Care Environmental Sampler Name Role Phone Christiano Nicholson DO Primary Care Provider [phone] Allergies Active Allergy Reactions Criticality Noted Date Comments Codeine Unknown Sulfa Antibiotics Medications Hermitage-3 Fatty Acids (FISH OIL BURP-LESS) 1200 MG capsule 1 bid 0 09/06/2018 Active Multiple Vitamin (MULTIVITAMIN) capsule 1 daily 0 11/14/2017 Active metoprolol tartrate (LOPRESSOR) 25 MG tablet Take 25 mg by mouth 1 (one) time each day 01/23/2020 Active rOPINIRole (REQUIP) 1 MG tablet 04/25/2022 Active losartan (COZAAR) 25 MG tablet Take 25 mg by mouth 1 (one) time each day 02/24/2022 Active ergocalciferol (VITAMIN D2) 1.25 MG (50975 UT) capsule TAKE 1 CAPSULE BY MOUTH TWICE A WEEK 26 capsule 09/29/2022 Active Active Problems Problem Noted Date Diagnosed Date Dyslipidemia 09/06/2018 Vitamin D deficiency 05/17/2018 Stage 3a chronic kidney disease 05/03/2012 Essential (primary) hypertension 05/03/2012 Immunizations Immunization Administration Dates Next Due Influenza Split High Dose Preservative Free IM 09/03/2018,08/26/2017,09/19/2016,2014,10/13/2012,1941 Influenza TIV (IM) 08/21/2022,08/21/2021, 020 Pneumococcal Conjugate 07/08/2007 Zoster 01/19/2015 Family History Medical History Relation Comments Kidney disease Neg Hx Social History Tobacco Use Types Packs/Day Years Used Date Smoking Tobacco: Former Smokeless Tobacco: Never Alcohol Use Standard Drinks/Week Comments Not Currently 0 (1 standard drink = 0.6 oz pur e alcohol) Comments Unknown Sex and Gender Information Value Date Recorded Sex Assigned at Not on file Legal Sex Female 9:04 AM MST Gender Identity Not on file Sexual Orientation Not on file Last Filed Vital Signs Vital Sign Reading Time Taken Comments Blood Pressure 124/82 10/27/2022 9:41 AM STATION SUPERINTENDENT Pulse 84 10/27/2022 9:41 AM STATION SUPERINTENDENT Temperature 34.9 C (94.9 F) 10/27/2022 9:41 AM STATION SUPERINTENDENT Respiratory Rate - - Oxygen Saturation - - Inhaled Oxygen Concentration - - Weight 95.3 kg (210 lb) 10/27/2022 9:41 AM STATION SUPERINTENDENT Height 157.5 cm (5' 2) 10/27/2022 9:41 AM STATION SUPERINTENDENT Body Mass Index 38.41 10/27/2022 9:41 AM STATION SUPERINTENDENT Plan of Treatment Health Maintenance Due Date Last Done Comments Pneumococcal PPSV23/PCV13 65 + Years / High and Highest Risk (1 of 5 - PCV) 1960 Influenza Vaccine (Season Ended) 2025 08/21/2022, 08/21/2021, 08/05/2020 Insurance MEDICARE AET Care Teams Environmental Sampler Relationship Specialty Start Date End Date Christiano Nicholson DO [address] [place] [id number] PCP - General Internal Medicine 01/01/20
--- OUTSIDE RECORDS SUMMARY | 2025-04-05 14:25 | XMS_ITS | Clinical Summary ---
Author Organization [facility] Address [address] [place] [address] Care Team Providers Care Electron Beam Photo Mask Technician Name Role Phone Christiano Nicholson DO Primary Care Provider [phone] Allergies Active Allergy Reactions Criticality Noted Date Comments Codeine Vomiting Low 05/22/2019 vomiting Sulfa (Sulfonamide Antibiotics) Other (See comments) Low 05/22/2019 Instructed by renal md not to take Medications ergocalciferol (VITAMIN D) 50,000 unit capsule Take 1 capsule (50,000 Units total) by mouth 2 (two) times a week Tuesdays and then fridays and saturdays 8 Active metoprolol (LOPRESSOR) 25 mg tabletIndication s:hypertension Take 1 tablet (25 mg total) by mouth every morning 0 9 Active losartan (COZAAR) 25 mg tabletIndication s:hypertension Take 1 tablet (25 mg total) by mouth every morning Active febuxostat (ULORIC) 40 mg tabletIndication s:prevention of acute gout attack Take 1 tablet (40 mg total) by mouth every morning 3 Active rOPINIRole (REQUIP) 1 mg tabletIndication s:Restless Legs Syndrome Take 1 tablet (1 mg total) by mouth daily 3 Active propylene glycoL (Systane Complete) 0.6 % dropsIndications :Dry Eye Administer 1 drop into affected eye(s) every morning Active rOPINIRole (REQUIP) 1 mg tablet Take 2 tablets (2 mg total) by mouth nightly Active acetaminophen 500 mg capsuleIndicatio ns:Pain Take 2 capsules (1,000 mg total) by mouth every 8 (eight) hours 90 tablet 3 Active aspirin 81 mg enteric coated tabletIndication s:Deep Vein Thrombosis Prevention Take 1 tablet (81 mg total) by mouth 2 (two) times a day 60 tablet 3 Active senna-docusate (PERICOLACE) 8.6-50 mgIndications:co nstipation Take 2 tablets by mouth 2 (two) times a day May increase to 4 tablets twice daily if needed. HOLD medication for diarrhea. 80 tablet 1 3 Active oxyCODONE (ROXICODONE) 5 mg immediate release tabletIndication s:Pain Take 1 tablet (5 mg total) by mouth every 4 (four) hours as needed for pain (breakthrough) 30 tablet 3 Active Additional Information Patient not taking.Reported on 02/13/2024 traMADoL (ULTRAM) 50 mg tabletIndication s:Postoperative pain TAKE 1 TABLET BY MOUTH EVERY 6 HOURS NEEDED FOR PAIN 42 tablet 3 Active pregabalin (LYRICA) 150 mg capsule TAKE 1 CAPSULE BY MOUTH EVERY DAY AT BEDTIME 3 Active furosemide (LASIX) 20 mg tabletIndication s:Aftercare following left knee joint replacement surgery Take 1/2 tablet daily 11 tablet 3 Active Active Problems Problem Noted Date Diagnosed Date Left knee pain 06/09/2023 Fall from standing 06/08/2023 Tibial plateau fracture, left, closed, initial e ncounter 06/04/2023 Derangement of knee 01/05/2023 Osteoarthritis 02/25/2022 Tear of lateral meniscus of knee 02/25/2022 Arthralgia of left knee 11/03/2021 Primary osteoarthritis of left knee 08/04/2021 Hyperlipidemia 09/06/2018 Dyslipidemia 09/06/2018 Vitamin D deficiency 05/17/2018 Primary osteoarthritis of fi rst carpometacarpal joint of left hand 03/20/2018 Chronic kidney disease, stage 3 (moderate) 05/03 Essential (primary) hypertension 05/03/2012 Immunizations Immunization Administration Dates Next Due Influenza, Trivalent, High D ose, Split, Preservative Free, Intramuscular 08/31/2019,09/04/2018,09/03/2018,08/26,09/19/2016,10/08/2015,10/13/2012 ,1941 Influenza, Trivalent, IM (MDV) ,08/21/2021,08/05/2020,08/03 Pneumococcal Conjugate 7-Valent 07/08/2007 ZOSTER LIVE 01/19/2015 Surgical History Surgery Date Site/Laterality Comments HYSTERECTOMY 11/07/1975 - 11/06/1976 KNEE ARTHROSCOPY 10/20/2021 Left torn menisus COLONOSCOPY 11/07/2018 - 11/06/2019 FOOT SURGERY Left bone spur Medical History Medical History Date Comments Hypertension Allergic rhinitis GERD (gastroesophageal reflux disease) Crohn's disease (HCC) Chronic kidney disease 2007 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 Petersen every 6 months for monitoring TIA (transient ischemic attack) 2005 no residual symptoms Osteoarthritis Family History Medical History Relation Name Comments Heart attack Son Anesthesia problems Neg Hx Relation Name Status Comments Son of [place] age 57 Social History Tobacco Use Types Packs/Day Years Used Date Smoking Tobacco: Former Cigarettes Q uit: 1995 Passive Smoke Exposure: Past Smokeless Tobacco: Never Tobacco Cessation:Counseling Given: Not Answered Social Connection and Isolat ion Panel [NHANES] Answer Date Recorded In a typical week, how many times do you talk on the phone with family, friends, or neighbors? More than three times a week 06/06/2023 How often do you get togethe r with friends or relatives? More than three times a week 06/06/2023 How often do you attend chur or orthodoxy services? 1 to 4 times per year 06/06/2023 Do you belong to any clubs o r organizations such as anglican groups, unions, fraternal or athletic groups, or school groups? No 06/06/2023 How often do you attend meet ings of the clubs or organizations you belong to? Never 06/06/2023 Are you , , di vorced, , never , or living with a partner? 06/06/2023 AUDIT-C Answer Date Recorded Q1: How often do you have a drink containing alc ohol? Never 06/09/2023 Average Number of Drinks Not on file 08/03/2 023 Q3: How often do you have si x or more drinks on one occasion? Never 06/09/2023 Overall Financial Resource Strain (CARDIA) Answe r Date Recorded How hard is it for you to pa y for the very basics like food, housing, medical care, and heating? Not very hard 06/06/2023 Hunger Vital Sign Answer Date Recorded Within the past 12 months, y ou worried that your food would run out before you got the money to buy more. Never true 06/06/20 23 Within the past 12 months, t he food you bought just didn't last and you didn't have money to get more. Never true 06/06/2023 PRAPARE - Transportation Answer Date Re corded In the past 12 months, has l ack of transportation kept you from medical appointments or from getting medications? No 05/09 In the past 12 months, has l ack of transportation kept you from meetings, work, or from getting things needed for daily living? No 06/06/2023 Housing Stability Vital Sign Answer Nando e Recorded In the last 12 months, was t here a time when you were not able to pay the mortgage or rent on time? No 06/06/2023 In the last 12 months, how many places have you lived? 1 06/06/2023 In the last 12 months, was t here a time when you did not have a steady place to sleep or slept in a correction (including now)? No 06/06/2023 Personal Safety Answer Date Recorded Have you ever been in or are you currently in a harmful physical or emotional relationship or is someone making you feel afraid or unsafe? Denies 06/09/2023 Comments No Sex and Gender Information Value Date Recorded Sex Assigned at Not on file Legal Sex Female 11:56 PM BOXING AND PRESSING SUPERVISOR Gender Identity Not on file Sexual Orientation Not on file Obstetrics History Last Filed Vital Signs Vital Sign Reading Time Taken Comments Blood Pressure 113/81 06/10/2023 11:04 AM CDT Pulse 89 06/10/2023 11:04 AM CDT Temperature 36.7 C (98 F) 06/10/2023 11:04 AM CDT Respiratory Rate 16 06/10/2023 11:04 AM CDT Oxygen Saturation 90% 06/10/2023 11:04 AM CDT Inhaled Oxygen Concentration - - Weight 95.3 kg (210 lb) 06/09/2023 5:29 AM CDT Height 167.6 cm (5' 6) 06/09/2023 5:29 AM CDT Body Mass Index 33.89 06/09/2023 5:29 AM CDT Plan of Treatment Health Maintenance Due Date Last Done Comments Depression Screening 1941 Osteoporosis Screening-Bone Density Scan 1941 DTaP/Tdap/Td Vaccine (1 - Tdap) 1952 Hepatitis B Screening 1959 Well Visit 65+ 2006 Pneumococcal vaccine 65+ (2 of 2 - PPSV23) 07/08/2008 07/08/2007 Zoster Vaccine (2 of 3) 03/16/2015 01/19/2015 Fall Risk Assessment 06/10/2024 06/10/2023 Influenza Vaccine (Season Ended) 2025 08/21/2022, 08/21/2021, 08/05/2020, Additional history exists Medical Devices Implanted Type Area Fresh Work Wrapper Layer Device Identifier Shelf Expiration Date Model / Serial / Lot [employer]uy [employer] Smartset Medium Viscosity Cement 40gm Bone Sterile 3122-040 - [id number] Implanted:Qty: 1 on 06/09/2023 by Ricardo Ludwig MD at [facility] Bone Cement Left: Knee [employer] 10/06/2024 3122-040 / / [id number] Dep[employer] Smartset Medium Viscosity Cement 40gm Bone Gentamicin [id number] - [id number] Implanted:Qty: 2 on 06/09/2023 by Ricardo Ludwig MD at [facility] Bone Cement Left: Knee [employer] 09/06/2024 [id number] / / [id number] Dep[employer] [id number] Attune 14mm 50mm Cemented Revision Knee Stem Femoral Sterile - [id number] Implanted:Qty: 1 on 06/09/2023 by Ricardo Ludwig MD at [facility] Left: Knee [employer] [id number] 09/06/2032 [id number] / / Dep[employer] Insert Tibial Knee Fixed Lm Posterior Stabilized Attune 6mm Size 5 Polyethylene [id number] - [id number] Implanted:Qty: 1 on 06/09/2023 by Ricardo Ludwig MD at [facility] Left: Knee [employer] [id number] 01/04/2031 [id number] / / Dep[employer] Attune Cement Revision Fix Bearing Knee 5 Baseplate Tibial [id number] - [id number] Implanted:Qty: 1 on 06/09/2023 by Ricardo Ludwig MD at [facility] Left: Knee [employer] [id number] 09/06/2031 [id number] / / Dep[employer] Attune Cemented Cruciate Retaining Knee Left 5 Narrow Component [id number] - [id number] Implanted:Qty: 1 on 06/09/2023 by Ricardo Ludwig MD at [facility] Left: Knee [employer] [id number] 03/06/2033 [id number] / / Insurance MEDICARE AET SENIOR SUPPLEMENT MEDICARE [facility] [place] MEDICARE AET SENIOR SUPPLEMENT Advance Directives For more information, please contact: [phone] * Full Code (Latest Code Status on File) Date Activated Date Inactivated Comments 06/09/2023 10:30 AM 06/10/2023 5:24 PM * Full Code Date Activated Date Inactivated Comments 06/04/2023 6:55 PM 06/08/2023 9:07 PM Care Teams Electron Beam Photo Mask Technician Relationship Specialty Start Date End Date Christiano Nicholson DO PCP - General 02/24/12
--- OUTSIDE RECORDS SUMMARY | 2025-04-05 14:25 | XMS_ITS | Referral Summary ---
Author Organization [facility] Address [address] [place] [address] Care Team Providers Care Box Maker Wood Name Role Phone Christiano Nicholson DO Primary Care Provider [phone]- [phone] Allergies Active Allergy Reactions Criticality Noted Date [...] Pneumococcal Conjugate 7-Valent 07/08/2007 ZOSTER LIVE 01/19/2015 Social History Tobacco Use Types Packs/Day Years [...] How often do you attend chur or yazdanism services? 1 to 4 times per year 06/06/2023 Do you belong to any clubs o r organizations such as caodaism groups, unions, fraternal or athletic groups, or [...] Average Number of Drinks Not on file 023 Q3: How often do you have [...] place to sleep or slept in a half-way (including now)? No 06/06/2023 Personal Safety Answer Date Recorded Have you ever been in or are you currently in a harmful physical or emotional relationship or is someone making you feel afraid or unsafe? 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 Gender Identity Not on file Sexual Orientation [...] 06/09/2023 5:29 AM CDT Plan of Treatment Not on file Medical Devices Implanted Type Area Church Musician Device Identifier Shelf Expiration Date Model / Serial / Lot [employer] Smartset Medium Viscosity Cement 40gm Bone Sterile 3122-040 - [id number] Implanted:Qty: 1 on 06/09/2023 by Ricardo Ludwig MD at [facility] Bone Cement Left: Knee [employer] 10/06/2024 3122-040 / / [id number] [employer] Smartset Medium Viscosity Cement 40gm Bone Gentamicin [id number] - [id number] Implanted:Qty: 2 on 06/09/2023 by Ricardo Ludwig MD at [facility] Bone Cement Left: Knee [employer] 09/06/2024 [id number] / / [id number] Dep[employer] [id number] Attune 14mm 50mm Cemented Revision Knee Stem Femoral Sterile - [id number] Implanted:Qty: 1 on 06/09/2023 by Ricardo Ludwig MD at [facility] Left: Knee [employer] [id number] 09/06/2032 [id number] / / [employer] Insert Tibial Knee Fixed Lm Posterior Stabilized Attune 6mm Size 5 Polyethylene [id number] - [id number] Implanted:Qty: 1 on 06/09/2023 by Ricardo Ludwig MD at [facility] Left: Knee [employer] [id number] 01/04/2031 [id number] / / Dep[employer] Attune Cement Revision Fix Bearing Knee 5 Baseplate Tibial [id number] - [id number] Implanted:Qty: 1 on 06/09/2023 by Ricardo Ludwig MD at [facility] Left: Knee [employer] [id number] 09/06/2031 [id number] / / Dep[employer] Attune Cemented Cruciate Retaining Knee Left 5 Narrow Component [id number] - [id number] Implanted:Qty: 1 on 06/09/2023 by Ricardo Ludwig MD at [facility] Left: Knee [employer] [id number] 03/06/2033 [id number] / / Insurance MEDICARE T SENIOR SUPPLEMENT MEDICARE [facility] MEDICARE [employer] SENIOR SUPPLEMENT Advance Directives For more information, please contact: [phone] * Full Code (Latest Code Status on File) Date Activated Date Inactivated Comments 06/09/2023 10:30 AM 06/10/2023 5:24 PM * Full Code Date Activated Date Inactivated Comments 06/04/2023 6:55 PM 06/08/2023 9:07 PM Care Teams Box Maker Wood Relationship Specialty Start Date End Date Christiano Nicholson DO PCP - General 02/24/12
== END 2025-04-05 14:22 | disposition home or self-care (01) ==
PROVIDERS: PCP Internal Medicine; Visit Provider Internal Medicine Nephrology
DX: M79.89 Other specified soft tissue disorders (principal); N18.32 Chronic kidney disease, stage 3b
CPT/HCPCS: 93971

== ENCOUNTER 2025-09-10 13:27 | Outpatient (CLI) | payer MEDICARE, SELFPAY ==
--- NOTE | ~2025-09-10 | XR_ITS ---
EXAMINATION: XR chest 2V, 09/10/2025 13:43 STATE APPELLATE CLERK HISTORY: Fever, unspecified, fever x 2 days, hurt back 2 months ago COMPARISON: No comparisons available. Technique: 2 views obtained. Findings: COPD changes. No pneumothorax. Heart is normal size. Large hiatal hernia. Bony thorax no acute abnormality. Impression: No acute cardiopulmonary abnormality. Reviewed, dictated and finalized at location P. E APPELLATE CLERK Impression: No acute cardiopulmonary abnormality.
== END 2025-09-10 13:28 | disposition home or self-care (01) ==
LOC: GOSHIMG 13:29
PROVIDERS: PCP Nurse Practitioner; Visit Provider Nurse Practitioner
DX: R50.9 Fever, unspecified (principal); R06.02 Shortness of breath
CPT/HCPCS: 71046

== ENCOUNTER 2025-09-10 13:56 | Outpatient (CLI) | payer MEDICARE, SELFPAY ==
--- OUTSIDE RECORDS SUMMARY | 2025-09-10 15:37 | XMS_ITS | Clinical Summary ---
Author Organization [facility] Address [address] [place] [address] Care Team Providers Care Business Programmer Name Role Phone Unavailable Primary Care Provider Unavailabl e Social History Tobacco Use Types Packs/Day Years Used Date Smoking Tobacco: Never Assessed Comments Unknown Sex and Gender Information Value Date Recorded Sex Assigned at Not on file Legal Sex Female 4:58 PM CDT Gender Identity Not on file Sexual Orientation Not on file Plan of Treatment Health Maintenance Due Date Last Done Comments DTaP, Tdap and Td Vaccines ( 1 - Tdap) 1960 Pneumococcal Vaccine: 50+ Ye ars (1 of 1 - PCV) 1991 Zoster Vaccines (1 of 2) 1991 Dexa Scan (General) 2006 RSV Immunization or 60+ Years (1 - 1-dose 75+ series) 2016 COVID-19 Vaccine (2024-2 6 season) 2025 Influenza Adult (#1) 2025 Hepatitis A Vaccines Aged Out No long er eligible based on patient's age to complete this topic Meningococcal B Vaccine Aged Out No l onger eligible based on patient's age to complete this topic Meningococcal Vaccine Aged Out No heaven tamra eligible based on patient's age to complete this topic RSV Immunizations Under 20 Months Aged Out No longer eligible based on patient's age to complete this topic
--- OUTSIDE RECORDS SUMMARY | 2025-09-10 15:37 | XMS_ITS | Clinical Summary ---
Author Organization [facility] Address [address] [place] [address] Care Team Providers Care Interactive Developer Name Role Phone Lyn Christiano Davin Primary Care Provider Allergies Active Allergy Reactions Criticality Noted Date [...] Hx Relation Name Status Comments Son of [place] age 57 Social History Tobacco Use Types Packs/Day Years Used Date Smoking Tobacco: Former Cigarettes Q uit: 1995 Passive Smoke Exposure: Past Smokeless Tobacco: Never Tobacco Cessation:Counseling Given: Not Answered Social Connection and Isolation Panel Answer Date Recorded In a typical week, how many times do you talk on the phone with family, friends, or neighbors? More than three times a week 06/06/2023 How often do you get togethe r with friends or relatives? More than three times a week 06/06/2023 How often do you attend chur or samaritan services? 1 to 4 times per year 06/06/2023 Do you belong to any clubs o r organizations such as hoahaoism groups, unions, fraternal or athletic groups, or [...] place to sleep or slept in a detention (including now)? No 06/06/2023 Personal Safety Answer Date Recorded Have you ever been in or are you currently in a harmful physical or emotional relationship or is someone making you feel afraid or unsafe? Denies 06/09/2023 Comments No Sex and Gender Information Value Date Recorded Sex Assigned at Not on file Legal Sex Female 11:56 PM PRODUCTION COORDINATOR Gender Identity Not on file Sexual Orientation [...] Pneumococcal vaccine 65+ (2 of 2 - PCV20 or PCV21) 07/08/2008 07/08/2007 Zoster Vaccine (2 of 3) 03/16/2015 01/19/2015 Fall Risk Assessment 06/10/2024 06/10/2023 Influenza Vaccine (#1) 2025 2, 08/21/2021, 08/05/2020, Additional history exists Medical Devices Implanted Type Area Vice President Mission Integration Device Identifier Shelf Expiration Date Model / Serial / Lot Depuy [employer] Smartset Medium Viscosity Cement 40gm Bone Sterile 3122-040 - [id number] Implanted:Qty: 1 on 06/09/2023 by Ricardo Ludwig MD at [facility] Bone Cement Left: Knee [employer] 10/06/2024 3122-040 / / [id number] Dep[employer] Smartset Medium Viscosity Cement 40gm Bone Gentamicin [id number] - [id number] Implanted:Qty: 2 on 06/09/2023 by Ricardo Ludwig MD at [facility] Bone Cement Left: Knee [employer] 09/06/2024 [id number] / / [id number] Dep[employer] [id number] Attune 14mm 50mm Cemented Revision Knee Stem Femoral Sterile - [id number] Implanted:Qty: 1 on 06/09/2023 by Ricardo Ludwig MD at [facility] Left: Knee [employer] [id number] 09/06/2032 [id number] / / [employer] Insert Tibial Knee Fixed Lm Posterior Stabilized Attune 6mm Size 5 Polyethylene [id number] - [id number] Implanted:Qty: 1 on 06/09/2023 by Ricardo Ludwig MD at [facility] Left: Knee [employer] [id number] 01/04/2031 [id number] / / Dep[employer] Attune Cement Revision Fix Bearing Knee 5 Baseplate Tibial [id number] - [id number] Implanted:Qty: 1 on 06/09/2023 by Ricardo Ludwig MD at [facility] Left: Knee [employer] [id number] 09/06/2031 [id number] / / Dep[employer] Attune Cemented Cruciate Retaining Knee Left 5 Narrow Component [id number] - [id number] Implanted:Qty: 1 on 06/09/2023 by Ricardo Ludwig MD at [facility] Left: Knee [employer] [id number] 03/06/2033 [id number] / / Insurance MEDICARE T SENIOR SUPPLEMENT MEDICARE [facility] [place] MEDICARE AET SENIOR SUPPLEMENT Advance Directives For more information, please contact: [phone] * Full Code (Latest Code Status on File) Date Activated Date Inactivated Comments 06/09/2023 10:30 AM 06/10/2023 5:24 PM * Full Code Date Activated Date Inactivated Comments 06/04/2023 6:55 PM 06/08/2023 9:07 PM Care Teams Interactive Developer Relationship Specialty Start Date End Date Christiano Nicholson DO PCP - General 02/24/12
[2025-09-10 19:41] LABS: Influenza A QL RT-PCR Negative (Negative); Influenza B QL RT-PCR Negative (Negative); RSV RNA, RT-PCR Negative (Negative); SARS-CoV-2 RNA PCR Positive (Negative)
== END 2025-09-10 13:57 | disposition home or self-care (01) ==
LOC: ANHGOSHLAB 13:57
PROVIDERS: PCP Nurse Practitioner; Visit Provider Nurse Practitioner
DX: R50.9 Fever, unspecified (principal); Z20.822 Contact with and (suspected) exposure to COVID-19
CPT/HCPCS: 87637